=== PATIENT | female | born 1935 | race Caucasian/White ===

== ENCOUNTER → 2023-06-02 10:00 | Outpatient (REF) | payer MEDICARE, BC, SELFPAY ==
[2023-06-02 11:40] LABS: TSH 3.19 uIU/ml (0.47-4.68)
[2023-06-02 12:51] LABS: Free T4 1.44 ng/dl (0.78-2.19)
== END ==
LOC: REG 10:00
PROVIDERS: ATTENDING PHYSICIAN Internal Medicine Endocrinology, Diabetes & Metabolism; FAMILY PHYSICIAN Family Medicine
DX: E04.2 Nontoxic multinodular goiter (principal); E03.9 Hypothyroidism, unspecified
CPT/HCPCS: 36415; 84439; 84443

== ENCOUNTER 2023-07-04 03:35 | Emergency (ER) | payer MEDICARE, BC, SELFPAY ==
[2023-07-04 03:37] VITALS: BP 154/89; BMI 23.4
[2023-07-04 03:41] VITALS: BP 154/89
[2023-07-04 03:51] LABS: % Eosinophils 5.6 % (0-6); % Immature Granulocytes 0.2 % (0-0.5); % Lymphocytes 35.9 % (20.5-51.1); % Monocytes 10.4 % (1.7-9.3); % Neutrophils 46.9 % (42.2-75.2); Absolute Basophils 0.1 10^3/uL (0-0.2); Absolute Eosinophils 0.3 10^3/uL (0-0.7); Absolute Lymphocytes 1.8 10^3/uL (1.2-3.4); Absolute Monocytes 0.5 10^3/uL (0.1-0.6); Absolute Neutrophils 2.3 10^3/uL (1.4-6.5); Hematocrit 40.4 % (37.0-47.0); Mean Corp Hgb Conc. 34.7 g/dL (33.0-37.0); Mean Corpuscular Hgb 32.6 pg (27.0-31.0); Mean Corpuscular Volume 94.2 fL (81.0-99.0); Nucleated Red Blood Cells % 0 %; Platelet Count 198 10^3/uL (130-400); Red Blood Cell Count 4.29 10^6/uL (4.20-5.40); Red Cell Dist. Width 13.8 % (11.5-14.5)
--- NOTE | 2023-07-04 03:58 | ED.GENMED ---
History of Present Illness
<SRUTHI Weller - Last Filed: 07/04/23 04:16>
General
Chief Complaint: Heart Rate Problem
Source: patient
Exam Limitations: none
Time Seen by Provider: 07/04/23 03:44
Nursing documentation reviewed up to this point in time: agreed with
Travel History
Have you had any contact with someone who has COVID-19?: No
Do you have any symptoms of coronavirus? Fever > 100 degrees, chills, cough, shortness of breath, sore throat, loss of taste or smell, muscle aches, or headache?: No
History of Present Illness
History of Present Illness:
patient is a 88 y/o female with PMH of HTN, lung tumor and Afib presenting with palpitations. Patient states she has had palpitations for the last 2 weeks after starting on doxazosin for her HTN. patient states she went to poultry inseminator and surgeon
within the last week. Patient admits that she wanted to stop doxazosin because of the palpitations it was causing but states her doctors told her to stay on it because she needs her BP to come down in order to have the tumor in her chest removed.
Patient denies visual changes, MUÑOZ, SOB, dizziness.
Past History
<SRUTHI Weller - Last Filed: 07/04/23 04:16>
Past History
ED Past Medical History: Arrthythmia (Palpitations, questionable history of atrial fibrillation), HTN, Psychiatric (Anxiety) and Other (migraines)
ED Past Surgical History: None
Social History
Tobacco: Non-smoker
Alcohol: Occasional
Personal:
Living: with family
Family History
Family History: Unable to obtain
Review of Systems
<SRUTHI Weller - Last Filed: 07/04/23 04:16>
Review of Systems
All Other Systems: Not applicable
Constitutional: Reports no symptoms
EENT: Reports no symptoms
Respiratory: Reports no symptoms
Cardiac: Reports palpitations
ABD/GI: Reports no symptoms
: Reports no symptoms
Musculoskeletal: Reports no symptoms
Skin: Reports no symptoms
Neurological: Reports no symptoms
Endocrine: Reports no symptoms
Hematologic/Lymphatic: Reports no symptoms
Psychiatric: Reports no symptoms
Phy Exam
<SRUTHI Weller - Last Filed: 07/04/23 04:16>
General Physical Exam
General Presentation: well appearing and no apparent distress
General Skin: warm and dry
General Habitus: normal
General Mental: alert
General Hydration: appears well hydrated
ENT Exam
ENT Exam: EOMI, pharynx normal, neck supple and normocephalic
Eye Exam
Eye Exam: PERRL, cornea clear and conjunctiva normal
Cardiovascular Exam
Cardiovascular Exam: irregularly irregular
Pulmonary Exam
Pulmonary Exam: lungs clear, no respiratory distress, no rales, no crackles, no rhonchi, no stridor, no wheezing and no cough
Gastrointestinal Exam
Gastrointestinal Exam: normal bowel sounds, non tender, soft, no organomegaly, no pulsatile mass and non distended
Neurological Exam
Neurological Exam: alert, oriented x3, no motor deficits and speech normal
Musculoskeletal Exam
Musculoskeletal Exam: full ROM and no edema
Skin Exam
Skin Exam: normal color, warm/dry, no rash and no petechia
Psychiatric Exam
Psychiatric Exam: normal mood/affect
Course
<SRUTHI Weller - Last Filed: 07/04/23 04:16>
Orders/Labs/Results
Orders:
Orders
07/04/23 03:36
Electrocardiogram (*1) Urgent
Reason for Study: Chest Pain
Cardiac Monitoring- Treatment ONCE
EKG- Treatment ONCE
IV Insert/Care/Rem.- Treatment PRN
O2 Therapy [RESP] Urgent
Titrate/Wean O2 to maintain O2 sat greater than (%): 90
Special Instructions: Maintain sats >/=90%
Pulse Ox/spot Check [RESP] Urgent
Quantity: 1
Special Instructions: ON ROOM AIR
07/04/23 03:44
Complete Blood Count/With Diff Urgent
Comprehensive Metabolic Panel Urgent
Troponin I Urgent
07/04/23 04:08
Diltiazem 125 mg/125 ml Nss [Cardizem] 125 mg in 125 ml IV NOW
Initial dose in mg/hr, then titrate:: 10
Titrate to keep:: Heart rate 80-100 bpm
Titrate by mg/hr:: 5 mg/hr
Frequency of titrations (minutes):: 15
Maximum dose in mg/hr:: 15
07/04/23 04:18
EKG [Electrocardiogram (*1)] Urgent
Reason for Study: Abnormal EKG
Other Reason for Exam: converted back to NSR
EKG- Treatment ONCE
Abnormal Lab Results
07/04/23
03:44
MCH 32.6 H pg
(27.0-31.0)
Monocytes % 10.4 H %
(1.7-9.3)
BUN 19 H mg/dl
(7-17)
Glucose 122 H mg/dl
(70-99)
07/04/23 03:44
07/04/23 03:44
Vital Signs
Initial and Last Documented VS:
Initial Vital Signs
Temp Pulse Resp BP
97.7 F 101 18 154/89
07/04/23 03:37 07/04/23 03:37 07/04/23 03:37 07/04/23 03:37
Last Documented Vital Signs
Temp Pulse Resp BP Pulse Ox
97.7 F 94 23 142/70 94
07/04/23 03:37 07/04/23 05:46 03/24/24 05:46 07/04/23 05:00 07/04/23 05:46
<Maryann Pratt DO - Last Filed: 07/04/23 05:56>
Orders/Labs/Results
Orders:
Orders
07/04/23 03:36
Electrocardiogram (*1) Urgent
Reason for Study: Chest Pain
Cardiac Monitoring- Treatment ONCE
EKG- Treatment ONCE
IV Insert/Care/Rem.- Treatment PRN
O2 Therapy [RESP] Urgent
Titrate/Wean O2 to maintain O2 sat greater than (%): 90
Special Instructions: Maintain sats >/=90%
Pulse Ox/spot Check [RESP] Urgent
Quantity: 1
Special Instructions: ON ROOM AIR
07/04/23 03:44
Complete Blood Count/With Diff Urgent
Comprehensive Metabolic Panel Urgent
Troponin I Urgent
07/04/23 04:08
Diltiazem 125 mg/125 ml Nss [Cardizem] 125 mg in 125 ml IV NOW
Initial dose in mg/hr, then titrate:: 10
Titrate to keep:: Heart rate 80-100 bpm
Titrate by mg/hr:: 5 mg/hr
Frequency of titrations (minutes):: 15
Maximum dose in mg/hr:: 15
07/04/23 04:18
EKG [Electrocardiogram (*1)] Urgent
Reason for Study: Abnormal EKG
Other Reason for Exam: converted back to NSR
EKG- Treatment ONCE
Abnormal Lab Results
07/04/23
03:44
MCH 32.6 H pg
(27.0-31.0)
Monocytes % 10.4 H %
(1.7-9.3)
BUN 19 H mg/dl
(7-17)
Glucose 122 H mg/dl
(70-99)
07/04/23 03:44
07/04/23 03:44
Vital Signs
Initial and Last Documented VS:
Initial Vital Signs
Temp Pulse Resp BP
97.7 F 101 18 154/89
07/04/23 03:37 07/04/23 03:37 07/04/23 03:37 07/04/23 03:37
Last Documented Vital Signs
Temp Pulse Resp BP Pulse Ox
97.7 F 94 23 142/70 94
07/04/23 03:37 07/04/23 05:46 07/04/23 05:46 07/04/23 05:00 07/04/23 05:46
<SRUTHI Weller - Last Filed: 07/04/23 04:16>
MDM/Problems Addressed
Differential Diagnosis Includes:
afib
HTN
MDM/Problems Addressed:
palpitations
<SRUTHI Weller - Last Filed: 07/04/23 04:16>
*Critical Care Note
Total Time (30-74mins, 75-104mins- exclusive of procedures): Not Applicable
<Maryann Pratt DO - Last Filed: 07/04/23 05:56>
*Pulse Oximetry
Patient hypoxic: no
*EKG
Interpreted by ED Provider?: Yes
Interpretation: abnormal
Comparison EKG: changes noted (A-fib with rapid ventricular response is new compared to previous EKG April 2023 showing normal sinus rhythm)
Rate: tachycardiac
Rhythm: a-fib
[place]: normal axis
Interval: normal QT interval
QRS Pattern: normal QRS
Ischemia: no ischemia
*Aging Room Hand Interpretation
Rate: tachycardiac
Interpretation: abnormal
Rhythm: a-fib
ED Attending Note
<SRUTHI Weller - Last Filed: 07/04/23 04:16>
-
Portions of this chart may have been created with voice recognition software.� Occasional wrong word or��sound alike� substitutions may have occurred due to the inherent limitations of voice recognition software.
<Maryann Pratt DO - Last Filed: 07/04/23 05:56>
ED Attending Note
Patient seen and examined by attending physician: Yes
I performed the substantive portion of visit, reviewed & personally made and approve the management plan that is documented in note by myself or GOKUL.: Yes
I performed a history and physical exam of patient and discussed management with resident, I reviewed resident's note and agree with documented findings and plan of care.: Yes
ED Attending Note:
This is an 88-year-old woman with history of paroxysmal A-fib status post A-fib ablation March 26, 2023. Had been started on Tikosyn January 2023 but this was discontinued after PVI in March. She is chronically maintained on Eliquis.
She has had longstanding history of somewhat recalcitrant hypertension and has been following with Dr. 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
The plan is for right lung tumor removal July 27 but blood pressure must be better controlled prior to surgery thus senior mechanical engineer started doxazosin 1 mg twice daily 2 weeks ago. After starting this patient has noted intermittent palpitations that
were worse tonight with difficulty falling asleep tonight thus she called 911 and upon EMS arrival patient found to be in A-fib with rapid ventricular response of 150 and found to be quite hypertensive blood pressure initially 200/120. She denies
chest pain or shortness of breath, no dizziness or lightheadedness. She was given IV Cardizem 15 mg prehospital with improvement in ventricular response to 106, no further palpitations and blood pressure improved.
Shortly after arrival to the ED patient has spontaneously converted to normal sinus rhythm.
She states she had a routine visit with her poultry inseminator, Dr. Carl last week and was found to be in normal sinus rhythm but admits that she had no palpitations at that time.
Other than these intermittent palpitations over the past 2 weeks she has been feeling well.
Currently feels well without complaints.
GENERAL: 88-year-old woman appears somewhat younger than stated age, awake and alert,
EYE: anicteric
NECK: Supple, nontender, no meningismus, no significant adenopathy.
ENT: oral mucosa is moist. No rhinorrhea
CARDIAC: Regular rate and rhythm. no murmur.
LUNGS: Clear breath sounds bilaterally, no acute respiratory distress, no wheezes/rales/rhonchi
ABDOMEN: Soft, nondistended, without focal tenderness, normoactive BS.
NEUROLOGICAL: Alert and oriented x3, no focal neuro deficits.
SKIN: Warm and dry, normal color, skin intact. No rash.
MUSCULOSKELETAL: No C/C/E. peripheral pulses are full and equal b/l. No palpable tenderness.
PSYCH: Normal and appropriate interaction.
Patient with history of PAF presents with PAF with rapid ventricular response accompanied with significant hypertension.
Improved after IV Cardizem prehospital and has since converted to normal sinus rhythm with marked improvement in blood pressure to now 142/84.
She is asymptomatic, comfortable.
Chronically maintained on Eliquis.
Labs are pending.
07/04/2023 0548 AM
Patient remains in normal sinus rhythm. Remains asymptomatic.
Labs are unremarkable.
Cardiology has been notified via [place] text. Plan is for discharge to home with prompt follow-up with cardiology.
Recommend prompt follow-up with nephrology as well.
Discharge Plan
Departure
Patient Disposition: Home (Routine Discharge)
Date of Disposition: 07/04/23
Time of Disposition: 05:46
Patient with high blood pressure during this ER visit?: No
Condition: Good
Discharge Problem:
Paroxysmal atrial fibrillation with rapid ventricular response, Paroxysmal atrial fibrillation
Instructions: Atrial Fibrillation (DC)
Prescriptions:
No Action
levothyroxine 25 MCG tablet
25 mcg PO DAILY AT 0700
ezetimibe [Zetia] 10 MG tablet
10 mg PO DAILY
cholecalciferol (vitamin D3) [Vitamin D3] 2,000 UNIT capsule
2,000 unit PO DAILY
Eliquis 5 MG tablet
5 mg PO BID
clonidine HCl 0.1 mg Tablet
0.1 mg PO BID
multivitamin Tablet
1 tab PO DAILY
carvedilol 6.25 mg Tablet
6.25 mg PO BID
doxazosin 1 mg Tablet
1 mg PO BID
lisinopril 20 mg Tablet
20 mg PO DAILY
Referrals:
Georges Carl MD [Active] - Call in 1-3 days for appt
Mark Coronel DO [Family Provider] -
Scout Russ MD [Active] - Call in 1-3 days for appt
Interventions
Interventions:
*Risk Screen - Suicide Last Done: 07/04/23 03:37
*General Assessment Last Done: 07/04/23 03:37
*Neglect/Abuse Screening Last Done: 07/04/23 03:37
ED- Fall Risk Assessment Last Done: 07/04/23 04:01
*ED COVID-19 Vaccine History Last Done: 07/04/23 04:01
ED- Cardiac Assessment Last Done: 07/04/23 04:01
ED- Pulmonary Assessment Last Done: 07/04/23 04:01
[2023-07-04 04:00] VITALS: BP 142/84
[2023-07-04 04:15] LABS: ALT (SGPT) 16 U/L (0-35); AST (SGOT) 23 U/L (14-36); Albumin 4.1 g/dl (3.5-5.0); Alkaline Phosphatase 105 U/L (38-126); Blood Urea Nitrogen 19 mg/dl (7-17); Calcium 9.3 mg/dl (8.4-10.2); Carbon Dioxide 26 mmol/L (22-30); Chloride 102 mmol/L (98-107); Estimated Creatinine Clearance 68 ml/min; Glucose 122 mg/dl (70-99); Potassium 4.1 mmol/L (3.5-5.1); Sodium 136 mmol/L (135-145); Total Bilirubin 0.5 mg/dl (0.2-1.3); Total Protein 6.9 g/dl (6.3-8.2); eGFR > 60.00
[2023-07-04 04:34] LABS: Troponin I < 0.012 ng/ml
[2023-07-04 05:00] VITALS: BP 142/70
[2023-07-04 06:00] VITALS: BP 151/69
== END 2023-07-04 06:45 | disposition home or self-care (01) ==
LOC: EMR 03:35
PROVIDERS: EMERGENCY PHYSICIAN Emergency Medicine; FAMILY PHYSICIAN Family Medicine
DX: I48.0 Paroxysmal atrial fibrillation (principal); I10 Essential (primary) hypertension; F41.9 Anxiety disorder, unspecified; G43.909 Migraine, unspecified, not intractable, without status migrainosus; I25.10 Atherosclerotic heart disease of native coronary artery without angina pectoris; D49.1 Neoplasm of unspecified behavior of respiratory system; E78.5 Hyperlipidemia, unspecified; K57.90 Diverticulosis of intestine, part unspecified, without perforation or abscess without bleeding; Z79.01 Long term (current) use of anticoagulants
CPT/HCPCS: 99285; 94760; 80053; 84484; 85025; 93005

== ENCOUNTER 2023-07-28 04:57 | Inpatient (IN) | payer MEDICARE, BC, SELFPAY ==
[2023-07-15 08:25] VITALS: BMI 23.7
[2023-07-15 08:59] LABS: Urine Albumin Negative (Neg - Trace); Urine Bilirubin Negative (Negative); Urine Character Clear (Clear); Urine Color Yellow; Urine Glucose Negative (Negative); Urine Ketone Negative (Negative); Urine Leukocyte Negative (Negative); Urine Nitrite Negative (Negative); Urine Occult Blood Negative (Negative); Urine Urobilinogen Negative (Neg - 1+)
[2023-07-15 09:02] LABS: % Basophils 1.2 % (0-2); % Eosinophils 4.7 % (0-6); % Immature Granulocytes 0.2 % (0-0.5); % Lymphocytes 24.7 % (20.5-51.1); % Monocytes 9.8 % (1.7-9.3); % Neutrophils 59.4 % (42.2-75.2); Absolute Basophils 0.1 10^3/uL (0-0.2); Absolute Eosinophils 0.2 10^3/uL (0-0.7); Absolute Lymphocytes 1.2 10^3/uL (1.2-3.4); Absolute Monocytes 0.5 10^3/uL (0.1-0.6); Absolute Neutrophils 2.9 10^3/uL (1.4-6.5); Hematocrit 39.7 % (37.0-47.0); Hemoglobin 13.4 g/dL (12.0-16.0); Mean Corp Hgb Conc. 33.8 g/dL (33.0-37.0); Mean Corpuscular Hgb 32.8 pg (27.0-31.0); Mean Corpuscular Volume 97.3 fL (81.0-99.0); Mean Platelet Volume 12.1 fL (7.4-10.4); Nucleated Red Blood Cells % 0 %; Platelet Count 142 10^3/uL (130-400); Red Blood Cell Count 4.08 10^6/uL (4.20-5.40); Red Cell Dist. Width 13.7 % (11.5-14.5); White Blood Cell Count 4.9 10^3/uL (4.8-10.8)
[2023-07-15 09:09] LABS: INR 1.26; PT 15.8 Sec (11.4-14.6)
[2023-07-15 09:10] LABS: APTT 35.5 Sec (23.4-35.0)
[2023-07-15 09:12] LABS: ALT (SGPT) 15 U/L (0-35); AST (SGOT) 24 U/L (14-36); Albumin 4.2 g/dl (3.5-5.0); Alkaline Phosphatase 94 U/L (38-126); Blood Urea Nitrogen 13 mg/dl (7-17); Calcium 9.5 mg/dl (8.4-10.2); Carbon Dioxide 30 mmol/L (22-30); Chloride 98 mmol/L (98-107); Direct Bilirubin 0.2 mg/dl (0.0-0.4); Estimated Creatinine Clearance 56 ml/min; Glucose 108 mg/dl (70-99); Potassium 4.3 mmol/L (3.5-5.1); Sodium 135 mmol/L (135-145); Total Bilirubin 0.5 mg/dl (0.2-1.3); Total Protein 6.7 g/dl (6.3-8.2); eGFR > 60.00
--- NOTE | 2023-07-15 10:59 | CM ---
Chart reviewed. Met with the patient and her niece in [facility]. Reviewed preoperative and postoperative instructions and restrictions, along with showering guidelines. Gave patient 2 soaps. Patient is agreeable to a home visit by CT Transitional RN.
Patient is independent of ADLS, lives alone in a 3 STH, 2 JASON, 0 DME. Patient with a supportive niece and nephew who live closeby. Dr Cabrera advised patient to follow up with nephrology for labile BP. Plan is for the patient to return home with
CT Transitional RN. CM to follow
[2023-07-15 11:47] LABS: Glycohemoglobin (HgbA1c) 5.7 % (4.0-5.6)
[2023-07-28] VITALS (37 sets, daily range): BP systolic 97–192; BP diastolic 52–92; BMI 23.7; BMI 22.4
--- NOTE | 2023-07-28 05:30 | PTCARENOTE ---
pt admitted into room 2267. VS and weight obtained. pt confirms 2 showers @ home and NPO since midnight except for 3 pills this morning. admission questions and med rec completed. clip prep and CHG cloth bath done.
--- NOTE | 2023-07-28 06:18 | W.CVOR.SURPR ---
[facility] Surgeon Immed Pre Op
-
I have examined this patient prior to performance of the scheduled procedure.
The patient's condition is unchanged from the time of the dictated/written History and
Physical and the patient is able to undergo the scheduled procedure.
BP well controlled this morning. Plan for RATS RLL +/- LN dissection. Would likely be safer to transect the RLL at the hilum as opposed to
attempting a wedge resection (could cause more manipulation of the tumor and bp instability).
[2023-07-28 08:37] LABS: Urine Albumin Negative (Neg - Trace); Urine Bilirubin Negative (Negative); Urine Character Clear (Clear); Urine Color Yellow; Urine Glucose Negative (Negative); Urine Ketone Negative (Negative); Urine Leukocyte Negative (Negative); Urine Nitrite Negative (Negative); Urine Occult Blood Negative (Negative); Urine Urobilinogen Negative (Neg - 1+)
--- NOTE | 2023-07-28 11:12 | W.PN.CT.SURG ---
CT Surgery Operative Note
-
THORACIC SURGERY OPERATIVE REPORT
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
Postoperative Diagnosis: Same
Procedure(s) Performed:
1. Robotic assisted thoracic surgery [RATS] right lower lobe extended wedge resection
2. Intercostal nerve block with the bupivacaine mixture from intercostal spaces 6, 7, 8, 9 using 5 cc in each space
3. Cryoablation of intercostal spaces 6, 7, 8, 9 with 2 minutes of cryotherapy in each space for analgesia
4. Radical lymph node dissection
5. Bleb resection of the right middle lobe
6. Right lower lobe additional wedge resection of small iatrogenic injury
Date of Surgery: 07/27 08/03
Comorbidities:
1. Significant uncontrolled hypertension
2. Polymyositis
3. Pseudogout
4. Atrial flutter and fibrillation, chronic on anticoagulation
5. History of septic arthritis
6. Pulmonary nodule
Attending Surgeon: Miguel German MD, MS
Assistants: Edelmira Hdez PA-C (present and necessary to commercial real estate assistant, exchanging robotic instruments, retraction, suction, exposure, suture management, and wound closure under my direction)
Anesthesiology: Nick Cabrera MD and Aundrea Butcher CRNA
Scrub and Circulating RNs: Ricki Mcfarlane RN, Phoebe Montiel RN
Anesthesia: Dual Lumen GETA
EBL: 20 cc
Products: None
Indication(s) for Procedures: This is a very functional 88-year-old female who is having uncontrolled hypertension, headaches, and tachycardia/atrial arrhythmias. She underwent CT imaging study which found a isolated nodule in the right lower lobe.
PET/CT imaging with dotatate scan revealed significant uptake and activity in that nodule consistent with a neuroendocrine tumor. After alpha blockade and beta-blockade, she was referred to me for further surgical resection and management.
Findings: There are no obvious other intrathoracic lesions. There is a very discrete nodule closer towards the hilum at the base of the right lower lobe close the pericardium. I mobilized the right lower lobe circumferentially and also obtain
multiple lymph nodes at various stations. I felt that it was feasible to perform a wedge resection with negative margins. This was sent off for frozen section which was found to be negative but the margin was close. Additional extended wedge
resection was performed the staple line to approximate 1.5 additional centimeters of normal-appearing parenchyma. A small rent was created at the right lower lobe towards the medial margin from retraction. This was wedged and discarded. There was
a bleb in the medial margin the right middle lobe which was resected proactively. There is no air leak at the conclusion of the case, all 3 lobes inflated easily. Of note, she initially required night pride for hypertension however after right
resection she was on Levophed for hypotension. She received total of 2 L of crystalloid resuscitation and by the end of the case she was off all vasoactive drips.
Specimen(s):
Station 9, x 1 nodes
Station 8, x 1 nodes
Station 10, x 2 nodes
Station 11, x 1 nodes
Station 7, x 4 nodes
Right lower lobe wedge with extended margin
Right middle lobe wedge of blood
Description of Procedure: The patient was taken to the operating room. Induction via general anesthesia with endotracheal intubation was performed and central venous access and arterial monitoring were inserted. Their identity and procedure to be
performed were verified and they were positioned with the right side up on the operating table. The patient was then prepped and draped in a sterile fashion. A preoperative time-out was performed with all members of the team present. A Veress
needle was used to insufflate the chest after isolating the lung. An 8 mm port was placed in the midaxillary line at approximately the eighth intercostal space and confirmed to be intrathoracic without significant pulmonary injury. The chest was
surveyed for any evidence of metastatic disease. Patient tolerate insufflation without complication. 2 additional 12 mm trocars were placed on either side under camera guidance and a third 8 mm trocar was placed along the back. A 12 mm project administrative assistant
port was placed in the 11th intercostal space above the insertion of the diaphragm. An intercostal nerve block was performed at intercostal spaces 6 through 9. Cryotherapy was performed using 2 minutes of cryoablation at interspaces 6-9 for
analgesia.
The thoracic cavity was inspected for evidence of metastatic disease. None was observed. We started with mobilization of the inferior pulmonary ligament. We worked our way clockwise dissecting out the hilum and harvest any lymph nodes identified.
I felt I was able to perform a wedge resection with good clean margins without much manipulation of the nodule. Using several green load staplers, a wedge resection was performed and extracted from the chest cavity and a small specimen bag then
sent for frozen section. Frozen section returned with negative margins after cutting off the staple line, however the margins were close at 1 mm. Additional extended wedge resection was performed the staple line with blue indicating the tumor
side, measuring approximate 1.5 abnormal appearing parenchyma. I noticed that there was a small rent at the medial margin the right lower lobe so this was resected with a wedge resection to prevent air leak postoperatively. A bleb was also noticed
at the right middle lobe which was resected to again to mitigate the risk of air leak postoperatively. A chest tube was inserted and placed posterior laterally towards the apex. Pro gel was used to reinforce the staple lines. After confirming
hemostasis, the lung was fully inflated and all ports were removed. Incisions were closed in 3 layers including the fascia, dermal, and epidermis. Additional local anesthesia was injected into all incision sites. The skin wound was cleansed and
sealed with Dermabond glue.
All instrument, sponge, and needle counts were confirmed to be correct x 2 at the end of the operation. The patient was transferred to the cardiac intensive care unit extubated in critical but stable condition.
I, Dr. Miguel German, was present, scrubbed for, and performed all critical elements of this procedure.
Miguel German MD, MS
Cardiothoracic Surgeon
[facility]
This operative dictation was created using the [employer] dictation system. Please excuse any grammatical, typographical, or 'sound alike' errors
[2023-07-28] MEDS: TORADOL 15 MG IV (11:39)
[2023-07-28] MEDS: ZOFRAN 4 MG IV (11:43)
[2023-07-28] MEDS: ANCEF 10 IV ×2 (11:45)
--- NOTE | 2023-07-28 12:03 | PTCARENOTE ---
Received pt from [facility]; Pt AAOx3 and resting comfortably in bed; NSR on monitor and VSS; Right IJ Triple lumen and PIV x 1 patent, Nipride infusing at 1.5 mcg/kg/min see flow sheet for details; lungs diminished; CT x1 to water seal, no air leak and
no crepitus noted; 6L NC 98%; hypoactive bowel sounds; Amaya Catheter removed in OR pt due to void by 1730; palpable pulses throughout; no edema noted; surgical sites C/D/I; see nursing documentation for further details.
[2023-07-28] MEDS: SENOKOT-S PO (12:32)
[2023-07-28] MEDS: THERAGRAN PO (12:32)
[2023-07-28] MEDS: COMPAZINE 10 MG IV (12:59)
--- NOTE | 2023-07-28 13:23 | CON.MD ---
Consultation - Medical
-
Data reviewed, patient evaluated in the CVICU, complete nephrology consultation dictated
Critically ill in CVICU on nitroprusside +/- norepinephrine
Status post robotic assisted right lower lobe extended wedge resection
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
Longstanding primary hypertension with change in pattern 2021
Atrial flutter/fibrillation on anticoagulation
History of cardioversion x 2
History of polymyositis
History of pseudogout
History septic arthritis
Hypothyroidism on replacement
Hypercholesterolemia, statin intolerant
Carotid atherosclerosis
Anxiety
Report of intraoperative need for nitroprusside then norepinephrine
Currently on low rate norepinephrine
A-line in place
Extubated
O2 saturation excellent on nasal cannula
Chest tube present
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
diet 72 hours preop and her diuretic had been discontinued weeks ago
Gradually wean off nitroprusside and norepinephrine
Postoperative course somewhat expected given suspected norepinephrine-secreting paraganglioma
Continue phenoxybenzamine at lower dose 10 mg BID
Would resume some beta-blockade with carvedilol 6.25 mg BID
Attempt to manage without clonidine short-term as I suspect antihypertensive requirements will diminish
Lisinopril 20 mg daily can be resumed
Discontinue terazosin when phenoxybenzamine is available
Await pathology
Reviewed with critical care nursing
Reviewed with cardiothoracic surgery
Total critical care time to complete this encounter 36 minutes
--- NOTE | 2023-07-28 13:43 | PTCARENOTE ---
A-line removed per [facility] order.
[2023-07-28] MEDS: ZESTRIL 20 MG PO (15:02)
--- NOTE | 2023-07-28 15:04 | PTCARENOTE ---
Assessment unchanged; NSR on monitor and VSS; family at bedside.
--- NOTE | 2023-07-28 15:19 | CM ---
Pt. in OR today for planned CT surgery.
Reviewed initial assessment. Patient is independent of ADLS, lives alone in a 3 STH, 2 JASON, 0 DME. Patient with a supportive niece and nephew who live closeby.
Anticipated DC plan is for home w/ CT Transitional Care RN.
CM to follow.
[2023-07-28] MEDS: ANCEF 5 IV (15:32)
[2023-07-28] MEDS: ROXICODONE 5 MG PO (15:34)
[2023-07-28] MEDS: COREG 6.25 MG PO ×2 (15:58→20:52)
[2023-07-28] MEDS: NON-FORMULARY ITEM 10 MG PO (16:07)
--- NOTE | 2023-07-28 17:37 | PTCARENOTE ---
BP 198/98 updated [facility] WET WHEELER; new orders placed Cardene IV started per [facility]ELER order.
[2023-07-28] MEDS: CARDENE 200 IV (17:39)
--- NOTE | 2023-07-28 17:55 | CON.PUL ---
Consultation
Consultation Request
Date/Time Consultation Requested: 07-28-23
Date/Time Consultation Performed: 07-28-23
Requesting Provider: Dr German
Performing Provider: Dr Medrano
Reason for Consultation: s/p RLL wedge resection
Medical History
-
Chief Complaint: postop incisional pain
History of Present Illness:
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
Referred to Dr German by Dr Russ. Prepared for surgical resection with phenoxybenzamine, lisinopril, carvedilol, clonidine.
Seen at [facility] upon referral from Dr German, normal PFTs, no objection to surgical procedure (records reviewed)
RLL wedge surgical resection performed today with no incident
Seen at CVICU in presence of close friend
Mild incisional pain
No h/o smoking
Not on home O2 or BDs
Past Medical History
Past Medical History: HTN and Other (AFib s/p ablation. Diverticulitis. Migraine. MVP. HLD. Anxiety. Insomnia. Thyroid nodule. R knee OA. )
Past Surgical History: Other (D&C)
Social History
Tobacco: Non-smoker
Alcohol: None
Drug: None
Personal:
Living: Alone
Employment: Retired
Family History
Family History: CAD (F) and Other (M: RA)
Allergies / Home Medications
Allergies
Allergy/AdvReac Type Severity Reaction Status Date / Time
amlodipine Allergy Swelling Verified 07/09/23 13:07
atorvastatin calcium Allergy leg cramps Verified 07/09/23 13:07
[From Lipitor] & heart
palpitations/head
pressure
citalopram Allergy whole body Verified 07/09/23 13:07
tingling
dofetilide [From Tikosyn] Allergy Unknown Verified 07/09/23 13:07
doxazosin Allergy elevated BP Verified 07/09/23 13:12
latex Allergy Itching Verified 07/09/23 13:07
pravastatin Allergy leg cramps Verified 07/09/23 13:07
& heart
palp.;
head
pressure
Home Medications
�Medication �Instructions �Recorded �Confirmed �Last Taken �Type
levothyroxine 25 mcg tablet 25 mcg PO DAILY AT 0700 Thyroid 07/13/11 07/28/23 07/27/23 08:00 History
apixaban 5 mg tablet (Eliquis) 5 mg PO BID Blood Clot 04/03/18 07/28/23 07/25/23 18:00 History
Prevention/Tx
cholecalciferol (vitamin D3) 50 2,000 unit PO DAILY Supplement 04/03/18 07/28/23 07/27/23 09:00 History
mcg (2,000 unit) capsule (Vitamin
D3)
ezetimibe 10 mg tablet (Zetia) 10 mg PO DAILY High Cholesterol 04/03/18 07/28/23 07/27/23 09:00 History
clonidine HCl 0.1 mg tablet 0.1 mg PO BID 10/18/22 07/28/23 07/28/23 04:30 History
multivitamin 1 tab PO DAILY 03/26/23 07/28/23 07/27/23 09:00 History
carvedilol 6.25 mg tablet 12.5 mg PO BID 07/04/23 07/28/23 07/28/23 04:30 History
lisinopril 20 mg tablet 20 mg PO DAILY 07/04/23 07/28/23 07/27/23 09:00 History
terazosin 1 mg capsule 1 mg PO QPM 07/09/23 07/28/23 07/27/23 18:00 History
phenoxybenzamine 10 mg capsule 10 mg PO BID 07/28/23 07/28/23 07/28/23 04:30 History
Review of Systems
-
History Source: Patient
All other systems: Negative unless noted
Respiratory: Other (incisional pain)
Neuro: Weakness
Vitals / Labs / Diagnostic Testing
Vital Signs
Temp Pulse Resp BP Pulse Ox
98.1 F 76 18 175/76 98
07/28/23 16:02 07/28/23 17:00 07/28/23 16:02 07/28/23 17:00 07/28/23 17:00
Lab Data
07/28/23 10:45
07/28/23 10:45
Laboratory Results
07/28/23
10:45
pH Cancelled
pCO2 Cancelled
pO2 Cancelled
HCO3 Cancelled
O2 Delivery Level Cancelled
Diagnostic Testing:
Physical Exam
-
HEENT: Normocephalic and Moist Mucous Membranes
Cardiovascular: Regular Rhythm, Murmur (n), Peripheral Edema (n), Calf Tenderness (n) and JVD (n)
Respiratory: Clear, Non-Labored Respirations and Other (R chest tube)
GI: Soft, Non Distended and Non Tender
Neurology: Awake, AO x 3 and No Motor Deficits
Skin: Warm
General: Respiratory Distress (n)
Assessment
-
Assessment:
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 Referred to Dr
German by Dr Russ. Prepared for surgical resection with phenoxybenzamine, lisinopril, carvedilol, clonidine. Wedge surgical resection performed today with no incident
Impression:
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
S/p wedge resection 07-27
Conditions ESTHETICIAN:
PAF s/p ablation, on apixaban
HTN
Diverticulitis
Migraine
MVP
Anxiety
Insomnia
Thyroid nodule
R knee OA
Sacroiliac septic arthritis
D&C
Nonsmoker
Plan:
O2 protocol
Not oh home O2 or BDs. LLNS
Asp precs
IS
R chest tube mgmt
Pain mgmt
HTN mgmt
Early mobilization
Follow [facility] on a routine basis
D/w Mrs Munoz
No critical care time charged
--- NOTE | 2023-07-28 20:00 | PTCARENOTE ---
Resumed care of patient from previous RN. walking rounds completed. patient oob in chair at time of assessment. Pt AAOx3.NSR on monitor and VSS. pulses palpable. no edema. CT x1 to water seal, no air leak and no crepitus noted. draining serosang
fluid. 96% on 1L nc. Lungs diminished but clear. + bowel sounds. intermittent nausea reported. voiding on bsc. some stress inc. surgical sites C/D/I. no pain reported at this time. will continue to monitor.
[2023-07-28] MEDS: SENOKOT-S 1 TABLET PO (20:52)
[2023-07-29] VITALS (32 sets, daily range): BP systolic 104–166; BP diastolic 52–93; BMI 23.2
[2023-07-29] MEDS: ANCEF 5 IV ×2 (00:26→07:40)
[2023-07-29 03:50] LABS: Hematocrit 36.4 % (37.0-47.0); Hemoglobin 12.5 g/dL (12.0-16.0); Mean Corp Hgb Conc. 34.3 g/dL (33.0-37.0); Mean Corpuscular Hgb 33.1 pg (27.0-31.0); Mean Corpuscular Volume 96.3 fL (81.0-99.0); Mean Platelet Volume 12.3 fL (7.4-10.4); Platelet Count 134 10^3/uL (130-400); Red Blood Cell Count 3.78 10^6/uL (4.20-5.40); Red Cell Dist. Width 13.8 % (11.5-14.5); White Blood Cell Count 9.5 10^3/uL (4.8-10.8)
[2023-07-29 04:14] LABS: Blood Urea Nitrogen 15 mg/dl (7-17); Calcium 9.2 mg/dl (8.4-10.2); Carbon Dioxide 27 mmol/L (22-30); Chloride 102 mmol/L (98-107); Estimated Creatinine Clearance 68 ml/min; Glucose 122 mg/dl (70-99); Potassium 4.3 mmol/L (3.5-5.1); Sodium 134 mmol/L (135-145); eGFR > 60.00
--- NOTE | 2023-07-29 06:21 | W.PN.CT ---
Today's Communication / Plan
-
-pod #1
-no significant issues overnight, in nsr
-on Cardene 5 for htn. Restarted on Coreg, Lisinopril, Phenoxybenzamine
-R CT on water seal since OR, no air leak with cough or breathing, put out 95/265 serosang fluid in 12/24 hrs
-follow daily CXR
-encourage IS, OOB, ambulate
Assessment / Plan
-
-Nodule in the right lower lobe consistent with a neuroendocrine tumor, significant hypertension- s/p Robotic assisted thoracic surgery [RATS] RLL extended wedge resection; Radical lymph node dissection; Bleb resection of the right middle lobe;
Right lower lobe additional wedge resection of small iatrogenic injury; Cryoablation of intercostal spaces 6, 7, 8, 9 for analgesia on 07/28/[address] German, pod #1
- there are no obvious other intrathoracic lesions
- received total of 2 L of crystalloid resuscitation
- Significant uncontrolled hypertension
- Polymyositis
- Pseudogout
- Paroxysmal Atrial flutter and fibrillation, on Eliquis preop
- History of septic arthritis
- Chronic L leg edema
- Pulmonary nodule
Discussed patient care with: Nursing and Care Team
Subjective
Procedure
- s/p Robotic assisted thoracic surgery [RATS] RLL extended wedge resection; Radical lymph node dissection; Bleb resection of the right middle lobe; Right lower lobe additional wedge resection of small iatrogenic injury; Cryoablation of intercostal
spaces 6, 7, 8, 9 for analgesia on 07/28/[address] German
-
Date of Service: July 28, 2023
Objective Data
-
Lab Results
07/28/23 10:45
07/28/23 10:45
PT 15.8 Sec (11.4-14.6) H 07/15/23 08:35
INR 1.26 07/15/23 08:35
APTT 35.5 Sec (23.4-35.0) H 07/15/23 08:35
Vital Signs
Vital Signs
Temp Pulse Resp BP Pulse Ox
98.3 F 73 18 134/57 96
07/28/23 20:00 07/28/23 20:52 07/28/23 16:02 07/28/23 20:52 07/28/23 20:00
CT Intake/Output/Weight
07/28/23 07/28/23 07/29/23
06:59 18:59 06:59
Intake Total 235.7 / 270.7 35 / 270.7
Output Total 670 / 690 20 / 690
Balance -434.3 / -419.3 15 / -419.3
SaO2: 96
Physical Exam
-
General: Awake and AOx3
Cardiovascular: Regular rate & rhythm, No Murmurs and No Rub
Respiratory: Rales (at bases b/l) and Decreased Breath Sounds
Incision: Clean, Dry and Dressing Intact
Extremities: Other (trace leg edema b/l (has chronic trace L edema). 1+ hand edema b/l. 2+ DPs b/l)
Data Reviewed
-
Lab Results: Results Reviewed
Medications: Active Meds Reviewed
Chest X-Ray: Report Reviewed and Image Reviewed
ECG: Report Reviewed and Image Reviewed
[2023-07-29] MEDS: SYNTHROID 25 MCG PO (06:33)
[2023-07-29] MEDS: TYLENOL 650 MG PO (06:33)
--- NOTE | 2023-07-29 07:11 | W.PN.PUL3 ---
Today's Communication / Plan
-
Follow on CXR results
[facility] follow up
Assessment
-
Assessment:
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 Referred to Dr
German by Dr Russ. Prepared for surgical resection with phenoxybenzamine, lisinopril, carvedilol, clonidine. Wedge surgical resection performed today with no incident
Impression:
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
S/p wedge resection 07-27
Conditions COMMUNICATION MANAGER:
PAF s/p ablation, on apixaban
HTN
Diverticulitis
Migraine
MVP
Anxiety
Insomnia
Thyroid nodule
R knee OA
Sacroiliac septic arthritis
D&C
Nonsmoker
Plan:
O2 protocol
Not oh home O2 or BDs. LLNS
Asp precs
IS
CXRs reviewed, tiny R apical pneumothorax, chest tube in R field, new air collection under R diaphragm
R chest tube removed today
Pain mgmt
HTN mgmt
Early mobilization
Follow [facility] on a routine basis
D/w Mrs Munoz
Subjective Data
-
Date of Service:
Date of Service: July 29, 2023
Chief Complaint: Pulmonary Follow Up
Subjective:
No major events reported overnight
Sitting in chair, stable on room air
Right chest tube removed today
Review of Systems
General: Fever (n), Sweats (n), Chills (n) and Satisfactory Appetite
HEENT: Epistaxis and Dysphagia (n)
Cardiopulmonary: Dyspnea (n), Cough, Chest Pain (incisional), Lower Extremity Pain (n) and Hemoptysis (n)
GI: Abdominal Pain (n), Nausea (n) and Vomiting (n)
Neuro: Weakness (n)
Objective Data
Data Reviewed
Vital Signs / I&O / Oxygen:
Vital Signs
Temp Pulse Resp BP Pulse Ox
98.1 F 76 18 151/71 93
07/29/23 03:54 07/29/23 04:35 07/29/23 03:54 07/29/23 04:00 07/29/23 03:54
Intake and Output
07/28/23 07/29/23 07/30/23
06:59 06:59 06:59
Intake Total 380.7 / 380.7
Output Total 1150 / 1150
Balance -769.3 / -769.3
SaO2 93
Nasal Cannula flow liters per 1
minute
Physical Exam
General: Comfortable
HEENT: Normocephalic and Moist Mucous Membranes
Cardiovascular: Regular Rhythm and Peripheral Edema (n)
Respiratory: Clear, Non-Labored Respirations and Stridor (n)
GI: Soft, Non Distended and Non Tender
Neurology: Awake, AO x 3 and No Motor Deficits
Skin: Warm
Labs/Micro/Reports
Lab Data
07/29/23 03:35
07/29/23 03:35
Laboratory Results
07/28/23
10:45
pH Cancelled
pCO2 Cancelled
pO2 Cancelled
HCO3 Cancelled
O2 Delivery Level Cancelled
[2023-07-29] MEDS: ZETIA 10 MG PO (07:40)
[2023-07-29] MEDS: ZESTRIL 20 MG PO (07:40)
[2023-07-29] MEDS: SENOKOT-S 1 TABLET PO (07:40)
[2023-07-29] MEDS: THERAGRAN 1 TABLET PO (07:41)
[2023-07-29] MEDS: COREG 6.25 MG PO (07:41)
[2023-07-29] MEDS: NON-FORMULARY ITEM 10 MG PO (07:41)
--- NOTE | 2023-07-29 07:44 | PTCARENOTE ---
Received pt from shift engineer RN; pt AAOX3 and resting comfortably in bed; NSR on monitor and VSS; RIJ Triple Lumen central line and PIV x1 patent; Lungs diminished; CT x1 to water seal, no air leak and no crepitus noted; positive bowel sounds; pt
voiding clear yellow urine; palpable pulses throughout; +1 generalized edema noted; surgical sites C/D/I; see nursing documentation for details.
--- NOTE | 2023-07-29 08:00 | PTCARENOTE ---
HR on monitor 150s and BP 155/83; update CV STRETCHER HELPER, Lopressor 5mg IV placed by STRETCHER HELPER; EKG preformed and resulted A-flutter.
[2023-07-29] MEDS: COMPAZINE 10 MG IV (08:06)
[2023-07-29] MEDS: LOPRESSOR 5 MG IV (08:21)
--- NOTE | 2023-07-29 08:46 | PTCARENOTE ---
[facility] at bedside and Right Pleural Chest tube removed at this time; awaiting for portable CRX.
[2023-07-29] MEDS: KLOR-CON 20 MEQ PO (09:00)
[2023-07-29] MEDS: ELIQUIS 5 MG PO (09:00)
[2023-07-29] MEDS: LASIX 40 MG IV (09:00)
--- NOTE | 2023-07-29 10:51 | W.DCSUMMARY ---
Discharge Summary
Discharge Data
Date of Admission: 07/28/23
Date of Discharge: 07/29/23
Total time spent discharging patient (in min): 35
-
Pending Results: No
Hospital Course
Primary care physician:
Dr. Mark Coronel MD
Outpatient icu registered nurse:
Dr. Georges Carl MD
Inpatient consultants:
1. Nephrology-Dr. Scout Russ MD.
2. Pulmonary-Dr. Kennedy Medrano MD.
Procedures:
1. Robotic assisted thoracic surgery, right lower lobe extended wedge resection
2. Bled resection of right middle lobe
3. Right lower lobe additional wedge resection of small iatrogenic injury
4. Cryoablation of intercostals via cryotherapy
Primary Diagnosis:
1. Nodue in the right lower lobe consistent with a neuroendocrine tumor
2. Significant uncontrolled hypertension
Secondary Diagnoses:
1. Polymyositis
2. Pseudogout
3. Atrial flutter and fibrillation
4. Chronic oral anticoagulation with Eliquis secondary to atrial flutter and fibrillation
5. History of septic arthritis
6. History of pulmonary nodule
HPI:
This is a very functional 88-year-old female who is having uncontrolled hypertension, headaches, and tachycardia/atrial arrhythmias. She underwent CT imaging study which found a isolated nodule in the right lower lobe. PET/CT imaging with dotatate
scan revealed significant uptake and activity in that nodule consistent with a neuroendocrine tumor. After alpha blockade and beta-blockade, she was referred to me for further surgical resection and management. Patient was deemed an appropriate
candidate for resection using the robotic assisted thoracic surgery approach. She presented electively to [facility] on the described above for the procedure described above.
Hospital course:
Patient tolerated procedure well. She was extubated in the operating theater and her chest tube was placed to waterseal. She was transported to the cardiovascular ICU where she underwent her postoperative recovery. Postoperatively she required
Nipride for hypertension. She was started on her home antihypertensive medications and Nipride was slowly weaned off. Amaya and A-line were discontinued. The rest the patient's postoperative course was uneventful. On postoperative day #1 no air
leak was visualized. Patient had a preoperative history of atrial fib/flutter and she went into atrial flutter with RVR 150s. She was given 5 mg of IV Lopressor and rates improved to 80s�90s. Discussion was had with cardiology and the patient's
Coreg was increased to 25 mg twice daily. Patient's chest tube was removed at the bedside. Post pull chest x-ray revealed free air noted under the diaphragm. This was discussed with attending physician and was likely due to the patient's robotic
procedure requiring CO2 insufflation. Repeat chest x-ray at 2:00 PM showed no significant changes. Patient's abdominal exam was asymptomatic with no complaints. Case was discussed with attending physician and she was medically cleared to be
discharged to home.
Patient should have a repeat outpatient PA and lateral chest x-ray on Wednesday08/03/23. Patient was instructed to please call, return to office, or present to the emergency room with any of the following symptoms fevers, chills, tachycardia, or
abdominal tenderness.
Home medication changes:
Please pay attention to the following medication changes:
Take Acetaminophen 650 mg Q4HPRN for mild pain/fever
Take Oxycodone 5 mg Q6HPRN for moderate-severe pain control
Take Carvedilol 25 mg BID
Please stop taking the following medications:
Carvedilol 12.5 mg BID and replace with Carvedilol 25 mg BID
Stop taking Clonidine 0.1 mg BID per request of Nephrology
Stop taking Terazosin 1 mg QPM per request of Nephrology
Discharge Plan
-
Patient Disposition: Home (Routine Discharge)
Discharge Diagnosis/Procedures: RLL wedge resection and lymph node dissection
Diet: No restrictions
Activity: No strenuous activity
Driving Restrictions: Not until seen by your Dr
Bathing Restrictions: OK to Shower
Others Tests: PA/Lateral Chest X ray to be performed on Wednesday08/03/23
Specialty Instructions: Weigh Daily- Call MD for wt gain/loss 3 lbs overnight/5 lbs in 1 week
Referrals:
CT Transitional Care Nurse [Outside] (The Cardiothoracic Transitional Care Nurse will call you to set up a visit in 1-2 days.)
Mark Coronel DO [Family Provider] -
Miguel German MD [Active] - 08/18/23 1:45 pm
Additional Discharge Medication Instructions: Please pay attention to the following medication changes:
Take Acetaminophen 650 mg Q4HPRN for mild pain/fever
Take Oxycodone 5 mg Q6HPRN for moderate-severe pain control
Take Carvedilol 25 mg BID
Please stop taking the following medications:
Carvedilol 12.5 mg BID and replace with Carvedilol 25 mg BID
Stop taking Clonidine 0.1 mg BID per request of Nephrology
Stop taking Terazosin 1 mg QPM per request of Nephrology
Please call, return to office, or present to the emergency room with any of the following symptoms fevers, chills, tachycardia, or abdominal tenderness
Prescriptions:
New
acetaminophen 325 mg Tablet
650 mg PO Q4HPRN PRN (Reason: temp >102 F and/or mild pain) Qty: 0 0RF
oxycodone 5 mg Tablet
5 mg PO Q6HPRN PRN (Reason: moderate-severe pain) Qty: 28 0RF
carvedilol [Coreg] 25 mg tablet
25 mg PO BID Qty: 60 1RF
Rx Instructions:
Next dose will be this evening around 10:00 pm if you are awake. If sleeping resume in AM
Continued
levothyroxine 25 MCG tablet
25 mcg PO DAILY AT 0700
ezetimibe [Zetia] 10 MG tablet
10 mg PO DAILY
cholecalciferol (vitamin D3) [Vitamin D3] 2,000 UNIT capsule
2,000 unit PO DAILY
multivitamin Tablet
1 tab PO DAILY
lisinopril 20 mg Tablet
20 mg PO DAILY
phenoxybenzamine 10 mg Capsule
10 mg PO BID Qty: 0 0RF
Eliquis 5 MG tablet
5 mg PO BID Qty: 0 0RF
Rx Instructions:
Next dose will be this evening 07/29/23 8:00 pm or when you typically take it in PM
Discontinued
clonidine HCl 0.1 mg Tablet
0.1 mg PO BID
carvedilol 6.25 mg Tablet
12.5 mg PO BID
terazosin 1 mg Capsule
1 mg PO QPM
Discharge Orders:
Discharge Patient (As Directed); Ordered 07/29/23
Ordered By: Taylor Ernst
Care Plan Goals
Care Plan Goals:
Problem: Readiness for enhanced knowledge related to diagnosis and treatment plan
Goal: Understand your diagnosis and treatment plan needs, including medications if applicable.
Instructions: Know your diagnosis, underlying causes and treatment plan options, including medications if applicable. Consult with your health care team to learn about your diagnosis and treatment plan, including medications if applicable.
Discharge Date and Time
Print Language: SPANISH
--- NOTE | 2023-07-29 11:19 | W.PN.NEPH.PH ---
Today's Communication / Plan
-
- blood pressures well controlled
Assessment/Plan
-
Status post robotic assisted right lower lobe extended wedge resection
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
Longstanding primary hypertension with change in pattern 2021
Atrial flutter/fibrillation on anticoagulation
History of cardioversion x 2
History of polymyositis
History of pseudogout
History septic arthritis
Hypothyroidism on replacement
Hypercholesterolemia, statin intolerant
Carotid atherosclerosis
Anxiety
Report of intraoperative need for nitroprusside then norepinephrine
Currently on low rate norepinephrine
A-line in place
Extubated
O2 saturation excellent on RA
Chest tube d/c
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
diet 72 hours preop and her diuretic had been discontinued weeks ago
Patient is now off of levo and nitroprusside
Postoperative course somewhat expected given suspected norepinephrine-secreting paraganglioma
Continue phenoxybenzamine at lower dose 10 mg BID
Okay with betablockade with coreg 12.5mg BID
Lisinopril 20 mg daily can be resumed
Avoid clonidine for now
Off cardene gtt
Discontinue terazosin when phenoxybenzamine is available
Await pathology
Likely plan for d/c later today or tomorrow.
Reviewed with critical care nursing
-
-
Date of Service: July 29, 2023
CC / HPI / ROS
-
Chief Complaint:
Blood pressure management following
catecholamine secreting paraganglioma resection.
History of Present Illness:
intraoperative hypertension then hypotension, now off all gtts
blood pressure well managed on penoxybenzamine, coreg and lisinopril today
Review of Systems:
feeling well
recieved lasix, good UOP
Labs
-
Labs:
WBC 9.5 10^3/uL (4.8-10.8) 07/29/23 03:35
RBC 3.78 10^6/uL (4.20-5.40) L 07/29/23 03:35
Hgb 12.5 g/dL (12.0-16.0) 07/29/23 03:35
Hct 36.4 % (37.0-47.0) L 07/29/23 03:35
Plt Count 134 10^3/uL (130-400) 07/29/23 03:35
Sodium 134 mmol/L (135-145) L 07/29/23 03:35
Potassium 4.3 mmol/L (3.5-5.1) 07/29/23 03:35
Chloride 102 mmol/L (98-107) 07/29/23 03:35
Carbon Dioxide 27 mmol/L (22-30) 07/29/23 03:35
BUN 15 mg/dl (7-17) 07/29/23 03:35
Creatinine 0.5 mg/dL (0.6-1.0) L 07/29/23 03:35
eGFR > 60.00 07/29/23 03:35
Glucose 122 mg/dl (70-99) H 07/29/23 03:35
Calcium 9.2 mg/dl (8.4-10.2) 07/29/23 03:35
Albumin 4.2 g/dl (3.5-5.0) 07/15/23 08:35
Physical Exam
-
Vital Signs:
Vital Signs
Temp Pulse Resp BP Pulse Ox
98.0 F 109 18 111/63 95
07/29/23 08:00 07/29/23 10:40 07/29/23 08:00 07/29/23 10:30 07/29/23 10:33
Cardiovascular:: Regular rate and rhythm
Respiratory:: Bilateral: Coarse
Lung Excursion:: Normal
Abdomen:: Nontender and Soft
Bowel Sounds:: Normal
Extremity Edema:: None: Bilateral:
Amaya Catheter: No
--- NOTE | 2023-07-29 12:04 | W.PN.ANS.POP ---
Anesthesia Post Operative
- Anesthesia Post Op Note
Vital Signs Stable-See Nursing Note: Yes
Airway Patent: Yes
Adequate Pain Control: Yes
Change in Mental Status: No
Current Postoperative Nausea & Vomiting: No
Anesthesia Complications: No
General Anesthetic Recall: No
Unplanned Admission: No
Post Op Hydration Adequate: Yes
--- NOTE | 2023-07-29 13:14 | PTCARENOTE ---
assumed care of pt from previous shift RN, initially uncontrolled AF on tele, converted to sinus rhythm. VSS, + peripheral pulses. Coughing and deep breathing encouraged. Surgical sites intact. Plan of care reviewed w the pt and questions
encouraged.
--- NOTE | 2023-07-29 14:30 | CM ---
CM following for DC planning needs.
Met w/ patient at bedside. Pt. reports that she is feeling well.
Reviewed DC plan for home w/ CT Transitional Care RN.
CM to cont. to follow.
[2023-07-29] MEDS: COREG 25 MG PO (14:40)
--- NOTE | 2023-07-29 14:44 | PTCARENOTE ---
TLC removed by [facility].
--- NOTE | 2023-07-29 16:48 | W.PA-PDMP ---
[place]-PDMP
-
Checked the [place]- Prescription Drug Monitoring Program website, no red flags identified; safe to proceed with prescription.
--- NOTE | 2023-07-29 17:35 | PTCARENOTE ---
IV line and tele monitor removed. Pt is refusing to shower until she gets home. Discharge instructions, medication list and follow up appointments reviewed w the pt and questions encouraged.
== END 2023-07-29 17:45 | disposition home or self-care (01) | DRG 164 ==
LOC: CVICU 04:57
PROVIDERS: Nurse Practitioner; ADMITTING PHYSICIAN Thoracic Surgery (Cardiothoracic Vascular Surgery); FAMILY PHYSICIAN Family Medicine; OTHER PHYSICIAN Internal Medicine Pulmonary Disease; OTHER PHYSICIAN Specialist
PROC: 8E0W4CZ Robotic Assisted Procedure of Trunk Region, Percutaneous Endoscopic Approach (ICD-10-PCS; 2023-07-28)
PROC: 07B74ZZ Excision of Thorax Lymphatic, Percutaneous Endoscopic Approach (ICD-10-PCS; 2023-07-28)
PROC: 015 Peripheral Nervous System, Destruction (ICD-10-PCS; 2023-07-28)
PROC: 0BBD4ZZ Excision of Right Middle Lung Lobe, Percutaneous Endoscopic Approach (ICD-10-PCS; 2023-07-28)
PROC: 0BT Respiratory System, Resection (ICD-10-PCS; 2023-07-28)
DX: C7A.090 Malignant carcinoid tumor of the bronchus and lung (principal); I48.92 Unspecified atrial flutter; M33.20 Polymyositis, organ involvement unspecified; K57.92 Diverticulitis of intestine, part unspecified, without perforation or abscess without bleeding; M00.9 Pyogenic arthritis, unspecified; D3A.8 Other benign neuroendocrine tumors; I10 Essential (primary) hypertension; M11.20 Other chondrocalcinosis, unspecified site; I48.0 Paroxysmal atrial fibrillation; F41.9 Anxiety disorder, unspecified; E78.00 Pure hypercholesterolemia, unspecified; Z79.01 Long term (current) use of anticoagulants; E04.1 Nontoxic single thyroid nodule; D44.7 Neoplasm of uncertain behavior of aortic body and other paraganglia; D35.00 Benign neoplasm of unspecified adrenal gland
CPT/HCPCS: 88305; 88307; 88332; 32505; 36415; 64999; 71045; 80048; 80053; 81003; 82248; 83036; 85025; 85027; 85610; 85730; 86850; 86900; 86901; 86920; 87070; 88331; 88341; 88342; 93005; 93880; C2615; C2618; J2760

== ENCOUNTER → 2023-08-03 12:01 | Outpatient (REF) | payer MEDICARE, BC, SELFPAY | LOC: RAD 12:01 | PROVIDERS: ATTENDING PHYSICIAN Thoracic Surgery (Cardiothoracic Vascular Surgery); FAMILY PHYSICIAN Family Medicine | DX: Z98.890 Other specified postprocedural states (principal) | CPT/HCPCS: 71046 ==

== ENCOUNTER 2023-09-13 12:15 | Emergency (ER) | payer MEDICARE, BC, SELFPAY ==
[2023-09-13 12:34] VITALS: BP 167/96
[2023-09-13 13:11] LABS: % Basophils 0.9 % (0-2); % Eosinophils 1.9 % (0-6); % Immature Granulocytes 0.3 % (0-0.5); % Lymphocytes 24.5 % (20.5-51.1); % Monocytes 10.2 % (1.7-9.3); % Neutrophils 62.2 % (42.2-75.2); Absolute Basophils 0.1 10^3/uL (0-0.2); Absolute Eosinophils 0.1 10^3/uL (0-0.7); Absolute Lymphocytes 1.8 10^3/uL (1.2-3.4); Absolute Monocytes 0.8 10^3/uL (0.1-0.6); Absolute Neutrophils 4.6 10^3/uL (1.4-6.5); Hematocrit 43.6 % (37.0-47.0); Hemoglobin 14.8 g/dL (12.0-16.0); Mean Corp Hgb Conc. 33.9 g/dL (33.0-37.0); Mean Corpuscular Hgb 33.3 pg (27.0-31.0); Mean Corpuscular Volume 98.2 fL (81.0-99.0); Mean Platelet Volume 11.4 fL (7.4-10.4); Nucleated Red Blood Cells % 0 %; Platelet Count 183 10^3/uL (130-400); Red Blood Cell Count 4.44 10^6/uL (4.20-5.40); Red Cell Dist. Width 13.2 % (11.5-14.5); White Blood Cell Count 7.4 10^3/uL (4.8-10.8)
[2023-09-13 13:22] LABS: ALT (SGPT) 14 U/L (0-35); AST (SGOT) 25 U/L (14-36); Albumin 4.4 g/dl (3.5-5.0); Alkaline Phosphatase 97 U/L (38-126); Blood Urea Nitrogen 24 mg/dl (7-17); Calcium 9.6 mg/dl (8.4-10.2); Carbon Dioxide 28 mmol/L (22-30); Chloride 99 mmol/L (98-107); Glucose 108 mg/dl (70-99); Potassium 4.9 mmol/L (3.5-5.1); Sodium 136 mmol/L (135-145); Total Bilirubin 0.5 mg/dl (0.2-1.3); Total Protein 7.3 g/dl (6.3-8.2); eGFR > 60.00
[2023-09-13 13:29] VITALS: BP 174/81
[2023-09-13 13:29] LABS: Troponin I < 0.012 ng/ml
[2023-09-13 14:00] VITALS: BP 131/54
[2023-09-13] MEDS: CATAPRES 0.100000000000000006 MG PO (14:13)
--- NOTE | 2023-09-13 14:23 | ED.GENMED ---
History of Present Illness
General
Chief Complaint: Heart Rate Problem
Time Seen by Provider: 09/13/23 13:42
Travel History
Have you had any contact with someone who has COVID-19?: No
Do you have any symptoms of coronavirus? Fever > 100 degrees, chills, cough, shortness of breath, sore throat, loss of taste or smell, muscle aches, or headache?: No
History of Present Illness
History of Present Illness:
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 Patient reports symptoms started this morning when she got up,
checked her heart rate and it was in the 160s. She called her yard goods salesperson who advised coming into the hospital. Notes in the middle of August, recently changed from Coreg to diltiazem. She has been taking her medications as directed, however does
not like the side effects of the diltiazem, reports insomnia and feels that she is in A-fib more frequently. Reports that her symptoms upon arrival to the hospital have improved. Palpitations have improved. Denies chest pain or difficulty
breathing. Denies fever or cough. Denies abdominal pain or GI symptoms. Denies additional acute medical complaints
Past History
Past History
ED Past Medical History: Arrthythmia (Palpitations, questionable history of atrial fibrillation), HTN, Psychiatric (Anxiety) and Other (migraines)
ED Past Surgical History: None
Social History
Tobacco: Non-smoker
Alcohol: Occasional
Personal:
Living: with family
Family History
Family History: Unable to obtain
Phy Exam
Physical Exam
Physical Exam:
GENERAL: Alert , in no apparent distress
EYE: pupils equal and reactive
NECK: Supple, no significant adenopathy.
ENT: o/p clr, mmm.
CARDIAC: Irregularly irregular rhythm, rate controlled
LUNGS: Clear breath sounds bilaterally, no acute respiratory distress, no wheezes/rales/rhonchi
ABDOMEN: Soft, without focal tenderness, no r/g, no cvat
NEUROLOGICAL: Alert and oriented, no focal neuro deficits
SKIN: Warm and dry, skin intact.
MUSCULOSKELETAL: No edema, well perfused.
PSYCH: Normal and appropriate interaction.
Course
Orders/Labs/Results
Orders:
Orders
09/13/23 12:35
Electrocardiogram (*1) Urgent
Reason for Study: Atrial Fibrillation
EKG- Treatment ONCE
09/13/23 12:49
Complete Blood Count/With Diff Urgent
Comprehensive Metabolic Panel Urgent
Troponin I Urgent
09/13/23 14:02
EKG [Electrocardiogram (*1)] Stat
Reason for Study: Palpitations
EKG- Treatment ONCE
Clonidine [Catapres] 0.1 mg PO NOW STA
Abnormal Lab Results
09/13/23
12:49
MCH 33.3 H pg
(27.0-31.0)
MPV 11.4 H fL
(7.4-10.4)
Absolute Monos (auto) 0.8 H 10^3/uL
(0.1-0.6)
Monocytes % 10.2 H %
(1.7-9.3)
BUN 24 H mg/dl
(7-17)
Glucose 108 H mg/dl
(70-99)
09/13/23 12:49
09/13/23 12:49
Vital Signs
Initial and Last Documented VS:
Initial Vital Signs
Temp Pulse Resp BP Pulse Ox
98.4 F 129 16 167/96 99
09/13/23 12:34 09/13/23 12:34 09/13/23 12:34 09/13/23 12:34 09/13/23 12:34
Last Documented Vital Signs
Temp Pulse Resp BP Pulse Ox
98.4 F 102 13 174/81 99
09/13/23 12:34 09/13/23 13:45 09/13/23 13:45 09/13/23 13:29 09/13/23 13:45
MDM/Problems Addressed
MDM/Problems Addressed:
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 Vital signs on arrival significant for tachycardia and hypertension, however patient did not
take her clonidine today.
On exam, patient resting comfortably, notes improvement of her symptoms. EKG consistent with A-fib with elevated heart rate of 124. Patient now rate controlled, in the 80s. Unremarkable laboratory analysis, placed by nursing protocol. Troponin
undetectable. No acute ischemic abnormality on EKG. Suspect symptoms secondary to known A-fib. Patient is requesting to go back on Coreg. Will repeat EKG and discuss cardiology.
14:30 -On repeat EKG, again rate controlled. Discussed with Dr. Najera from patient's cardiology group. Feels patient can go back on the Coreg given her preference. However will require outpatient follow-up with her yard goods salesperson this week.
Patient agreeable to plan. Patient's clonidine administered in the emergency department. Feel stable for discharge. Strict return precautions communicated and patient verbalized understanding
*EKG
EKG Intrepretation Date: 09/13/23
EKG Intrepretation Time: 14:30
Interpretation: abnormal (however no significant change from prior)
Comparison EKG: no changes (07/29/23)
Heart Rate: 124
Rhythm: a-fib
[place]: normal axis
Ischemia: no ischemia
*Critical Care Note
Total Time (30-74mins, 75-104mins- exclusive of procedures): Not Applicable
ED Attending Note
-
Portions of this chart may have been created with voice recognition software.� Occasional wrong word or��sound alike� substitutions may have occurred due to the inherent limitations of voice recognition software.
Discharge Plan
Departure
Prescriptions:
No Action
levothyroxine 25 MCG tablet
25 mcg PO DAILY AT 0700
ezetimibe [Zetia] 10 MG tablet
10 mg PO DAILY
cholecalciferol (vitamin D3) [Vitamin D3] 2,000 UNIT capsule
2,000 unit PO DAILY
multivitamin Tablet
1 tab PO DAILY
lisinopril 20 mg Tablet
20 mg PO DAILY
phenoxybenzamine 10 mg Capsule
10 mg PO BID Qty: 0 0RF
acetaminophen 325 mg Tablet
650 mg PO Q4HPRN PRN (Reason: temp >102 F and/or mild pain) Qty: 0 0RF
oxycodone 5 mg Tablet
5 mg PO Q6HPRN PRN (Reason: moderate-severe pain) Qty: 28 0RF
Eliquis 5 MG tablet
5 mg PO BID Qty: 0 0RF
Rx Instructions:
Next dose will be this evening 07/29/23 8:00 pm or when you typically take it in PM
carvedilol [Coreg] 25 mg tablet
25 mg PO BID Qty: 60 1RF
Rx Instructions:
Next dose will be this evening around 10:00 pm if you are awake. If sleeping resume in AM
Interventions
Interventions:
*Risk Screen - Suicide Last Done: 09/13/23 12:34
*General Assessment Last Done: 09/13/23 12:34
*Neglect/Abuse Screening Last Done: 09/13/23 12:34
ED- Fall Risk Assessment Last Done: 09/13/23 13:28
*ED COVID-19 Vaccine History Last Done: 09/13/23 12:34
ED- Cardiac Assessment Last Done: 09/13/23 13:28
ED- Pulmonary Assessment Last Done: 09/13/23 13:28
Discharge Date and Time
Print Language: SUDANESE
[2023-09-13 15:11] VITALS: BP 143/79
== END 2023-09-13 15:15 | disposition home or self-care (01) ==
LOC: EMR 12:15
PROVIDERS: Emergency Medicine; EMERGENCY PHYSICIAN Student in an Organized Health Care Education/Training Program; FAMILY PHYSICIAN Family Medicine
DX: I48.91 Unspecified atrial fibrillation (principal); I10 Essential (primary) hypertension; M33.20 Polymyositis, organ involvement unspecified; Z79.01 Long term (current) use of anticoagulants; Z88.8 Allergy status to other drugs, medicaments and biological substances; Z91.040 Latex allergy status
CPT/HCPCS: 99284; 80053; 84484; 85025; 93005

== ENCOUNTER → 2023-09-21 10:19 | Outpatient (REF) | payer MEDICARE, BC, SELFPAY ==
[2023-09-23 19:56] LABS: Serotonin 209 ng/mL (50-220)
== END ==
LOC: REG 10:19
PROVIDERS: ATTENDING PHYSICIAN Specialist; FAMILY PHYSICIAN Family Medicine
DX: D3A.090 Benign carcinoid tumor of the bronchus and lung (principal)
CPT/HCPCS: 36415; 82384; 83835; 84260

== ENCOUNTER → 2023-10-26 10:47 | Outpatient (REF) | payer MEDICARE, BC, SELFPAY | LOC: REG 10:47 | PROVIDERS: ATTENDING PHYSICIAN Specialist; FAMILY PHYSICIAN Family Medicine | DX: I10 Essential (primary) hypertension (principal); F41.9 Anxiety disorder, unspecified; I48.0 Paroxysmal atrial fibrillation; Z86.79 Personal history of other diseases of the circulatory system | CPT/HCPCS: 83497 ==

== ENCOUNTER → 2023-11-11 10:07 | Outpatient (REF) | payer MEDICARE, BC, SELFPAY | LOC: REG 10:07 | PROVIDERS: ATTENDING PHYSICIAN Specialist; FAMILY PHYSICIAN Family Medicine | DX: Z86.79 Personal history of other diseases of the circulatory system (principal); E34.9 Endocrine disorder, unspecified; I10 Essential (primary) hypertension; D3A.090 Benign carcinoid tumor of the bronchus and lung; I48.0 Paroxysmal atrial fibrillation; E78.00 Pure hypercholesterolemia, unspecified | CPT/HCPCS: 83497 ==

== ENCOUNTER → 2024-06-15 08:22 | Outpatient (REF) | payer MEDICARE, BC, SELFPAY ==
[2024-06-15 11:49] LABS: Free T4 1.23 ng/dl (0.78-2.19)
[2024-06-15 12:03] LABS: TSH 3.12 uIU/ml (0.47-4.68)
== END ==
LOC: RCS 08:22
PROVIDERS: ATTENDING PHYSICIAN Internal Medicine Endocrinology, Diabetes & Metabolism; FAMILY PHYSICIAN Family Medicine
DX: I35.1 Nonrheumatic aortic (valve) insufficiency (principal); I48.0 Paroxysmal atrial fibrillation
CPT/HCPCS: 36415; 84439; 84443; 93306

== ENCOUNTER 2024-08-23 11:45 | Emergency (ER) | payer MEDICARE, BC, SELFPAY ==
[2024-08-23 11:48] VITALS: BP 148/102
--- NOTE | 2024-08-23 13:07 | ED.GENMED ---
History of Present Illness
General
Chief Complaint: Abdominal Pain
Source: patient
Exam Limitations: none
Time Seen by Provider: 08/23/24 12:53
History of Present Illness
History of Present Illness:
89yoF with a history of atrial fibrillation, hypertension, hyperlipidemia, hypothyroidism, GERD presenting for evaluation of right rib pain. 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
07/28/[address] German. She has been having ongoing pain in her right lower rib area since then. The pain intermittently worsens. Her pain has been more severe over the past month and a half. Pain is worse with movement and if she is constipated.
She does not like to take medications so has not been taking anything for her pain. Her blood pressure is chronically high and SBP is usually in the 150s. Her blood pressure becomes very high, sometimes up to the 200s, when her pain worsens. She
spoke with her manager performance improvement today who told her to go to the ED. She denies any fevers, chest pain, shortness of breath, pleuritic pain, difficulty urinating.
Past History
Past History
ED Past Medical History: Arrthythmia (Palpitations, questionable history of atrial fibrillation), HTN, Psychiatric (Anxiety) and Other (migraines)
ED Past Surgical History: None
Social History
Tobacco: Non-smoker
Alcohol: Occasional
Personal:
Living: with family
Family History
Family History: Unable to obtain
Phy Exam
General Physical Exam
General Presentation: well appearing and no apparent distress
General Skin: warm and dry
General Habitus: normal
General Mental: alert
ENT Exam
ENT Exam: normocephalic
Cardiovascular Exam
Cardiovascular Exam: regular rate/rhythm and no murmur
Pulmonary Exam
Pulmonary Exam: lungs clear, no respiratory distress, no rales, no crackles, no rhonchi, no wheezing and other (+Tenderness to R lower anterior ribcage. Healed surgical scar noted. No skin changes or crepitus.)
Gastrointestinal Exam
Gastrointestinal Exam: non tender, soft, non distended and other (No abdominal tenderness and Howard's sign negative)
Skin Exam
Skin Exam: normal color and warm/dry
Psychiatric Exam
Psychiatric Exam: normal mood/affect
Course
Orders/Labs/Results
Orders:
Orders
08/23/24 13:06
Electrocardiogram (*1) Urgent
Reason for Study: Abdominal Pain
EKG- Treatment ONCE
CR Ribs-right 3 Vw W/pa Chest* Urgent
Comment:
Reason For Exam: R lower rib pain
US Abdomen Complete/Upper Urgent
Comment:
Reason For Exam: RUQ pain
08/23/24 13:16
Basic Metabolic Panel Urgent
Complete Blood Count/With Diff Urgent
Lipase Urgent
Troponin I Urgent
08/23/24 14:53
Hkqga-Wasw-Vwinpux Urgent
Potassium Urgent
Abnormal Lab Results
08/23/24
13:16
MCH 33.6 H pg
(27.0-31.0)
Plt Count 129 L 10^3/uL
(130-400)
MPV 12.7 H fL
(7.4-10.4)
Glucose 118 H mg/dl
(70-99)
08/23/24 13:16
08/23/24 14:53
Vital Signs
Initial and Last Documented VS:
Initial Vital Signs
Temp Pulse Resp BP Pulse Ox
97.6 F 67 16 148/102 98
08/23/24 11:48 08/23/24 11:48 08/23/24 11:48 08/23/24 11:48 08/23/24 11:48
Last Documented Vital Signs
Temp Pulse Resp BP Pulse Ox
97.6 F 63 17 170/85 97
08/23/24 11:48 08/23/24 17:00 08/23/24 17:00 08/23/24 17:00 08/23/24 17:00
MDM/Problems Addressed
Differential Diagnosis Includes:
89yoF here with R lower rib pain. Ongoing since having a R lung surgery last year. Worsening x 1.5 months. Worse with movement. Also concerned that her BP becomes high when her pain increases. BP 148/102 on arrival. Remainder of vitals are stable.
She is well appearing in no distress. There is reproducible rib tenderness on exam. No abdominal tenderness noted. Differential diagnosis includes but is not limited to: musculoskeletal, pleurisy, pneumonia, biliary pathology, less likely cardiac
Initial ED plan: Check cardiac labs, lipase, EKG, CXR, and upper abdominal ultrasound.
*EKG
Interpreted by ED Provider?: Yes
EKG Intrepretation Date: 08/23/24
Heart Rate: 62
Rate: normal
Rhythm: sinus
[place]: normal axis
Interval: normal interval
QRS Pattern: normal QRS
Ischemia: no ischemia
*Critical Care Note
Total Time (30-74mins, 75-104mins- exclusive of procedures): Not Applicable
Update Note
Update Note:
Labs overall unremarkable including normal renal function, LFTs, and lipase. EKG shows NSR without ischemic changes and troponin WNL. CXR clear. There is a delay in the radiology report of the ultrasound being published but per discussion with
radiologist, this is normal without acute findings. Suspect pain is related to prior surgery and possible scar tissue vs. musculoskeletal. Supportive care discussed including heat, lidocaine patch, and Tylenol. She was encouraged to f/u with her
manager performance improvement regarding her blood pressure. Patient in agreement with plan and was discharged in stable condition.
ED Attending Note
-
Portions of this chart may have been created with voice recognition software.� Occasional wrong word or��sound alike� substitutions may have occurred due to the inherent limitations of voice recognition software.
Discharge Plan
Departure
Patient Disposition: Home (Routine Discharge)
Date of Disposition: 08/23/24
Time of Disposition: 17:33
Patient with high blood pressure during this ER visit?: Yes
Discharge Problem:
Rib pain on right side
Instructions: Costochondritis
Prescriptions:
No Action
levothyroxine 25 MCG tablet
25 mcg PO DAILY AT 0700
ezetimibe [Zetia] 10 MG tablet
10 mg PO DAILY
cholecalciferol (vitamin D3) [Vitamin D3] 2,000 UNIT capsule
2,000 unit PO DAILY
multivitamin Tablet
1 tab PO DAILY
lisinopril 20 mg Tablet
20 mg PO DAILY
phenoxybenzamine 10 mg Capsule
10 mg PO BID Qty: 0 0RF
acetaminophen 325 mg Tablet
650 mg PO Q4HPRN PRN (Reason: temp >102 F and/or mild pain) Qty: 0 0RF
oxycodone 5 mg Tablet
5 mg PO Q6HPRN PRN (Reason: moderate-severe pain) Qty: 28 0RF
Eliquis 5 MG tablet
5 mg PO BID Qty: 0 0RF
Rx Instructions:
Next dose will be this evening 07/29/23 8:00 pm or when you typically take it in PM
carvedilol [Coreg] 25 mg tablet
25 mg PO BID Qty: 60 1RF
Rx Instructions:
Next dose will be this evening around 10:00 pm if you are awake. If sleeping resume in AM
Referrals:
Mark Coronel DO [Family Provider] -
Activity Restrictions/Additional Instructions:
Apply heat to affected area. Use lidocaine patches daily (12 hours on, 12 hours off). Take Tylenol 650mg every 6 hours as needed for pain.
Please follow-up with your manager performance improvement and family doctor regarding your blood pressure. Return to the ER with any new or worsening symptoms.
Interventions
Interventions:
*Risk Screen - Suicide Last Done: 08/23/24 11:48
*General Assessment Last Done: 08/23/24 13:10
*Neglect/Abuse Screening Last Done: 08/23/24 11:48
*Nursing Disposition Last Done: 08/23/24 17:44
WB-Dbjxqb-Otvlcbench Assessment Last Done: 08/23/24 13:10
Discharge Date and Time
Discharge Date/Time: 08/23/24 17:45
Print Language: ICELANDIC
[2024-08-23 13:17] VITALS: BP 174/83
[2024-08-23 13:23] LABS: % Basophils 1.4 % (0-2); % Eosinophils 3.8 % (0-6); % Immature Granulocytes 0.3 % (0-0.5); % Lymphocytes 28.7 % (20.5-51.1); % Monocytes 9.2 % (1.7-9.3); % Neutrophils 56.6 % (42.2-75.2); Absolute Basophils 0.1 10^3/uL (0-0.2); Absolute Eosinophils 0.2 10^3/uL (0-0.7); Absolute Lymphocytes 1.7 10^3/uL (1.2-3.4); Absolute Monocytes 0.5 10^3/uL (0.1-0.6); Absolute Neutrophils 3.3 10^3/uL (1.4-6.5); Hematocrit 41.8 % (37.0-47.0); Hemoglobin 14.4 g/dL (12.0-16.0); Mean Corp Hgb Conc. 34.4 g/dL (33.0-37.0); Mean Corpuscular Hgb 33.6 pg (27.0-31.0); Mean Corpuscular Volume 97.7 fL (81.0-99.0); Mean Platelet Volume 12.7 fL (7.4-10.4); Nucleated Red Blood Cells % 0 %; Platelet Count 129 10^3/uL (130-400); Red Blood Cell Count 4.28 10^6/uL (4.20-5.40); Red Cell Dist. Width 12.9 % (11.5-14.5); White Blood Cell Count 5.8 10^3/uL (4.8-10.8)
[2024-08-23 13:50] LABS: Troponin I < 0.012 ng/ml
[2024-08-23 13:58] LABS: Blood Urea Nitrogen 17 mg/dl (7-17); Calcium 9.4 mg/dl (8.4-10.2); Carbon Dioxide 30 mmol/L (22-30); Chloride 103 mmol/L (98-107); Glucose 118 mg/dl (70-99); Lipase 177 U/L (23-300); Sodium 137 mmol/L (135-145); eGFR > 60.00
[2024-08-23 15:00] VITALS: BP 193/78
[2024-08-23 15:14] LABS: ALT (SGPT) 18 U/L (0-35); AST (SGOT) 27 U/L (14-36); Albumin 4.7 g/dl (3.5-5.0); Alkaline Phosphatase 80 U/L (38-126); Direct Bilirubin 0.1 mg/dl (0.0-0.4); Potassium 4.6 mmol/L (3.5-5.1); Total Bilirubin 0.8 mg/dl (0.2-1.3); Total Protein 7.4 g/dl (6.3-8.2)
[2024-08-23 17:00] VITALS: BP 170/85
== END 2024-08-23 17:45 | disposition home or self-care (01) ==
LOC: EMR 11:45
PROVIDERS: Physician Assistant; EMERGENCY PHYSICIAN Emergency Medicine; FAMILY PHYSICIAN Family Medicine
DX: R07.81 Pleurodynia (principal); R10.11 Right upper quadrant pain; R11.0 Nausea; I48.91 Unspecified atrial fibrillation; I10 Essential (primary) hypertension; E78.5 Hyperlipidemia, unspecified; E03.9 Hypothyroidism, unspecified; K21.9 Gastro-esophageal reflux disease without esophagitis; F41.9 Anxiety disorder, unspecified; G43.909 Migraine, unspecified, not intractable, without status migrainosus; Z98.890 Other specified postprocedural states
CPT/HCPCS: 99285; 71101; 76700; 80048; 80076; 83690; 84132; 84484; 85025; 93005

== ENCOUNTER → 2024-10-05 08:51 | Outpatient (REF) | payer MEDICARE, BC, SELFPAY ==
[2024-10-05 13:57] LABS: Microalbumin, Random Urine <0.6 mg/dl (0.6-1.7)
== END ==
LOC: REG 08:51
PROVIDERS: ATTENDING PHYSICIAN Specialist; FAMILY PHYSICIAN Family Medicine
DX: R09.89 Other specified symptoms and signs involving the circulatory and respiratory systems (principal)
CPT/HCPCS: 82043; 82570

== ENCOUNTER → 2024-11-10 12:54 | Outpatient (REF) | payer MEDICARE, BC, SELFPAY | LOC: RAD 12:54 | PROVIDERS: ATTENDING PHYSICIAN Family Medicine | DX: M85.80 Other specified disorders of bone density and structure, unspecified site (principal); M81.0 Age-related osteoporosis without current pathological fracture | CPT/HCPCS: 77080 ==

== ENCOUNTER 2025-02-16 10:24 | Emergency (ER) | payer MEDICARE, BC, SELFPAY ==
[2025-02-16 10:31] VITALS: BP 169/103
--- NOTE | 2025-02-16 11:27 | ED.GENMED ---
History of Present Illness
General
Chief Complaint: Heart Rate Problem
Source: patient
Time Seen by Provider: 02/16/25 11:27
History of Present Illness
History of Present Illness:
89-year-old female with past medical history of atrial fibrillation, hypertension, hyperlipidemia, mitral regurgitation, hypothyroidism presenting to the emergency department for evaluation after experiencing palpitations feeling as if she might be
in an episode of atrial fibrillation. Patient believes this is due to being constipated a couple of days ago requiring her to strain and then feeling the more constant palp patients. She denies any chest pain, shortness of breath (triage noted to
say shortness of breath however she declined this to me), diaphoresis, exertional dyspnea, orthopnea, lower extremity edema, cough, fevers or infectious symptoms or any other concerns.
Past History
Past History
ED Past Medical History: Arrthythmia (Palpitations, questionable history of atrial fibrillation), HTN, Valvular disease, Hypothyroidism, Psychiatric (Anxiety) and Other (migraines)
ED Past Surgical History: Cardiac and Gynecological
Social History
Tobacco: Non-smoker
Alcohol: Occasional
Drug: None
Personal:
Living: with family
Family History
Family History: Unable to obtain
Review of Systems
Review of Systems
All Other Systems: ROS reviewed and negative except as documented in HPI and ROS
Phy Exam
Physical Exam
Physical Exam:
GENERAL: Alert , in no apparent distress
HEAD: Normocephalic atraumatic
EYE: conjunctiva clear
NECK: Supple
ENT: o/p clr, mmm.
CARDIAC: Regular rate and rhythm, frequent PACs seen on telemetry
LUNGS: Clear breath sounds bilaterally, no acute respiratory distress, no wheezes/rales/rhonchi
NEUROLOGICAL: Alert and oriented
SKIN: Warm and dry, skin intact.
MUSCULOSKELETAL: well perfused.
PSYCH: Normal and appropriate interaction.
Scores
Heart Failure Risk
Heart Failure Risk Score: Not Applicable
Heart Score for Chest Pain Patients
STEMI patient?: Not applicable
Withdrawal Assessment of Alcohol
Withdrawal Assessment Completed?: Not applicable
Course
Orders/Labs/Results
Orders:
Orders
02/16/25 10:34
ECG [Electrocardiogram (*1)] Urgent
Reason for Study: Palpitations
02/16/25 10:35
EKG- Treatment ONCE
02/16/25 12:14
Complete Blood Count/With Diff Urgent
Comprehensive Metabolic Panel Urgent
NT-proBNP Urgent
Troponin I Urgent
02/16/25 12:52
CR Chest - 2 Views Urgent
Comment:
Reason For Exam: palpitations
Abnormal Lab Results
02/16/25
12:14
RBC 4.18 L 10^6/uL
(4.20-5.40)
MCH 33.3 H pg
(27.0-31.0)
MPV 13.5 H fL
(7.4-10.4)
Monocytes % 9.5 H %
(1.7-9.3)
Sodium 134 L mmol/L
(135-145)
Potassium 5.4 H mmol/L
(3.5-5.1)
Glucose 107 H mg/dl
(70-99)
02/16/25 12:14
02/16/25 12:14
Vital Signs
Initial and Last Documented VS:
Initial Vital Signs
Temp Pulse Resp BP Pulse Ox
97.7 F 90 16 169/103 98
02/16/25 10:31 02/16/25 10:31 02/16/25 10:31 02/16/25 10:31 02/16/25 10:31
Last Documented Vital Signs
Temp Pulse Resp BP Pulse Ox
97.7 F 102 14 163/112 98
02/16/25 10:31 02/16/25 14:00 02/16/25 14:00 02/16/25 14:00 02/16/25 14:00
MDM/Problems Addressed
Differential Diagnosis Includes:
PAC/PVC
Afib/other arrhythmia
Valvular disease
ACS
CHF
Electrolyte Imbalance
MDM/Problems Addressed:
89-year-old female presenting to the ER for evaluation of palpitations, suspecting she may be in A-fib. EKG done in triage shows normal sinus rhythm with PACs. Patient remains in similar at time of my exam on telemetry. She is in no acute
distress. Patient is otherwise hemodynamically stable. Will check labs and continue to monitor on telemetry. Assuming patient remains stable without any abnormalities plan to discharge home
*Radiology
Radiology exam reviewed: preliminary read by ED provider (unchanged from last, small right pleural effusion)
*Pulse Oximetry
SaO2: 97
Oxygen Mode of Delivery: Room air
Patient hypoxic: no
*EKG
Heart Rate: 89
Rate: normal
Rhythm: sinus and PAC's
[place]: normal axis
Ischemia: non-specific ST changes
*Stonemason Apprentice Interpretation
Rate: normal
Heart Rate: 81
Rhythm: sinus and PAC's
*Critical Care Note
Total Time (30-74mins, 75-104mins- exclusive of procedures): Not Applicable
Data Reviewed
Review of Other/Old Records Reveals: Labs and Records
Patient Management
Escalation/DeEscalation of care consider admission/obs:
Patient remains hemodynamically stable and in no acute distress. No signs of A-fib on telemetry. She does have frequent PACs which I do suspect causing her current symptoms. Encouraged close follow-up with her cardiology team. Patient aware of
return precautions to the ER.
ED Attending Note
-
Portions of this chart may have been created with voice recognition software.� Occasional wrong word or��sound alike� substitutions may have occurred due to the inherent limitations of voice recognition software.
Discharge Plan
Departure
Patient Disposition: Home (Routine Discharge)
Date of Disposition: 02/16/25
Time of Disposition: 14:45
Patient with high blood pressure during this ER visit?: Yes
Discharge Problem:
Palpitations
Instructions: Palpitations (DC)
Prescriptions:
No Action
levothyroxine 25 MCG tablet
25 mcg PO DAILY AT 0700
ezetimibe [Zetia] 10 MG tablet
10 mg PO DAILY
cholecalciferol (vitamin D3) [Vitamin D3] 2,000 UNIT capsule
2,000 unit PO DAILY
multivitamin Tablet
1 tab PO DAILY
lisinopril 20 mg Tablet
20 mg PO DAILY
phenoxybenzamine 10 mg Capsule
10 mg PO BID Qty: 0 0RF
acetaminophen 325 mg Tablet
650 mg PO Q4HPRN PRN (Reason: temp >102 F and/or mild pain) Qty: 0 0RF
oxycodone 5 mg Tablet
5 mg PO Q6HPRN PRN (Reason: moderate-severe pain) Qty: 28 0RF
Eliquis 5 MG tablet
5 mg PO BID Qty: 0 0RF
Rx Instructions:
Next dose will be this evening 07/29/23 8:00 pm or when you typically take it in PM
carvedilol [Coreg] 25 mg tablet
25 mg PO BID Qty: 60 1RF
Rx Instructions:
Next dose will be this evening around 10:00 pm if you are awake. If sleeping resume in AM
Referrals:
Mark Coronel DO [Family Provider, Family Practice]
Interventions
Interventions:
*Risk Screen - Suicide Last Done: 02/16/25 10:35
*General Assessment Last Done: 02/16/25 10:35
*Neglect/Abuse Screening Last Done: 02/16/25 14:03
*ED- Fall Risk Assessment Last Done: 02/16/25 14:03
*ED COVID-19 Vaccine History Last Done: 02/16/25 14:03
*ED Influenza Vaccine History Last Done: 02/16/25 14:03
*Nursing Disposition Last Done: 02/16/25 15:04
ED- Cardiac Assessment Last Done: 02/16/25 12:27
ED- Pulmonary Assessment Last Done: 02/16/25 12:27
Discharge Date and Time
Discharge Date/Time: 02/16/25 15:06
Print Language: NAURUAN
[2025-02-16 12:00] VITALS: BP 145/65
[2025-02-16 12:25] LABS: Hematocrit 40.2 % (37.0-47.0); Hemoglobin 13.9 g/dL (12.0-16.0); Mean Corp Hgb Conc. 34.6 g/dL (33.0-37.0); Mean Corpuscular Volume 96.2 fL (81.0-99.0); Nucleated Red Blood Cells % 0 %; Platelet Count 211 10^3/uL (130-400); Red Cell Dist. Width 13.2 % (11.5-14.5)
[2025-02-16 12:43] LABS: ALT (SGPT) 15 U/L (0-35); AST (SGOT) 23 U/L (14-36); Albumin 4.1 g/dl (3.5-5.0); Alkaline Phosphatase 75 U/L (38-126); Blood Urea Nitrogen 17 mg/dl (7-17); Calcium 9.1 mg/dl (8.4-10.2); Carbon Dioxide 28 mmol/L (22-30); Chloride 101 mmol/L (98-107); Glucose 107 mg/dl (70-99); Potassium 5.4 mmol/L (3.5-5.1); Sodium 134 mmol/L (135-145); Total Protein 6.7 g/dl (6.3-8.2); eGFR > 60.00
[2025-02-16 12:48] LABS: Troponin I < 0.012 ng/ml
[2025-02-16 13:00] VITALS: BP 165/85
[2025-02-16 14:00] VITALS: BP 163/112
== END 2025-02-16 15:06 | disposition home or self-care (01) ==
LOC: EMR 10:24
PROVIDERS: Physician Assistant Medical; EMERGENCY PHYSICIAN Student in an Organized Health Care Education/Training Program; FAMILY PHYSICIAN Family Medicine
DX: R00.2 Palpitations (principal); I48.91 Unspecified atrial fibrillation; I10 Essential (primary) hypertension; E78.00 Pure hypercholesterolemia, unspecified; I34.0 Nonrheumatic mitral (valve) insufficiency; E03.9 Hypothyroidism, unspecified
CPT/HCPCS: 99283; 71046; 80053; 83880; 84484; 85025; 93005

== ENCOUNTER → 2025-02-22 06:39 | Day surgery (SDC) | payer MEDICARE, BC, SELFPAY ==
--- NOTE | 2025-02-22 09:09 | ITS.CL.CARDI ---
[employer] [facility] - Cardioversion
Cardioversion
Procedure Report:
Date of Procedure:
Procedure: Cardioversion
Indication: Symptomatic atrial fibrillation
Performing Physician: Gaby Irwin MD
Technique: The patient was brought to the holding area. Signed informed consent was obtained. A time out was called and performed. The patient was anesthetized by the anesthesia service. Anticoagulation status was reviewed and appropriate. R2 pads
were placed anteriorly and posteriorly. A 200 J synchronized biphasic shock restored normal sinus rhythm without significant bradycardia. There were no complications.
Conclusion: Uncomplicated cardioversion from atrial fibrillation to sinus rhythm.
Recommendation: Routine post cardioversion care. Continue fci anticoagulation.
== END ==
LOC: CATH 06:39
PROVIDERS: ATTENDING PHYSICIAN Internal Medicine; FAMILY PHYSICIAN Family Medicine; OTHER PHYSICIAN Internal Medicine Cardiovascular Disease
DX: I48.91 Unspecified atrial fibrillation (principal); Z79.01 Long term (current) use of anticoagulants
CPT/HCPCS: 92960; 93005

== ENCOUNTER → 2025-02-28 09:39 | Outpatient (REF) | payer MEDICARE, BC, SELFPAY ==
[2025-02-28 10:41] LABS: Hematocrit 40.8 % (37.0-47.0); Hemoglobin 14.0 g/dL (12.0-16.0); Mean Corp Hgb Conc. 34.3 g/dL (33.0-37.0); Mean Corpuscular Volume 99.5 fL (81.0-99.0); Nucleated Red Blood Cells % 0 %; Platelet Count 163 10^3/uL (130-400); Red Cell Dist. Width 13.5 % (11.5-14.5)
[2025-02-28 10:48] LABS: INR 1.03; PT 14.0 Sec (11.4-14.6)
[2025-02-28 10:53] LABS: ALT (SGPT) 25 U/L (0-35); AST (SGOT) 24 U/L (14-36); Albumin 4.7 g/dl (3.5-5.0); Alkaline Phosphatase 79 U/L (38-126); Blood Urea Nitrogen 15 mg/dl (7-17); Calcium 9.5 mg/dl (8.4-10.2); Carbon Dioxide 31 mmol/L (22-30); Chloride 101 mmol/L (98-107); Glucose 109 mg/dl (70-99); Magnesium 2.1 mg/dl (1.6-2.3); Potassium 4.6 mmol/L (3.5-5.1); Sodium 139 mmol/L (135-145); Total Protein 7.3 g/dl (6.3-8.2); eGFR > 60.00
== END ==
LOC: SDSPAT 09:39
PROVIDERS: ATTENDING PHYSICIAN Internal Medicine Cardiovascular Disease; FAMILY PHYSICIAN Family Medicine; OTHER PHYSICIAN Internal Medicine Cardiovascular Disease
DX: I48.0 Paroxysmal atrial fibrillation (principal)
CPT/HCPCS: 36415; 80053; 83735; 85025; 85610; 86850; 86900; 86901

== ENCOUNTER 2025-03-02 06:41 | Day surgery (SDC) | payer MEDICARE, BC, SELFPAY ==
[2025-02-28 10:04] VITALS: BMI 23.8
[2025-03-02] VITALS (17 sets, daily range): BP systolic 100–206; BP diastolic 49–89; BMI 23.7
--- NOTE | 2025-03-02 10:42 | ITS.CL.ABL ---
Senior Loan Officer - Ablation
Ablation
Procedure Report:
Primary Filler Sifter Machine: Dr Georges Carl
Procedure Date: 03/02/2025
Patient History:
Patient is a pleasant 89-year-old female with a past medical history significant for valvular heart disease, hypertension, mixed hyperlipidemia, paroxysmal atrial fibrillation status post ablation 2022, recurrence of symptomatic paroxysmal atrial
fibrillation and symptomatic paroxysmal typical atrial flutter
See H&P for complete details.
Indication:
Symptomatic paroxysmal atrial flutter, typical
Symptomatic paroxysmal atrial fibrillation
Arrhythmia Specific History:
Prior Medical Therapies for Rate and Rhythm Control:
X Beta-helena
[ ] Calcium channel-helena
[ ] Amiodarone
[ ] Dronederone
[ ] Sotalol
[ ] Flecainide
[ ] Dofetilide
[ ] Options limited by bradycardia
[ ] Options limited by comorbid renal disease
Prior Procedural Therapies for AF/AFL:
[ ] Cardioversion
X Pulmonary Vein Isolation - CRYO PVI 03/2023
[ ] Posterior Wall Isolation
[ ] Additional lines (Specify)
[ ] Surgical Monge-MAZE or PVI (Specify)
Procedure Performed:
X AF ablation procedure (90648) -- includes LA/CS pacing, trans-septal, 3D mapping, + ICE
[ ] +IV drug (93946)
X +Other Arrhythmia (39967) -- CTI ablation for typical atrial flutter
X +Other AF Line/ablation (97335) x2 -- floor line, roof line, posterior wall isolation
Risks and expected recovery has been explained in detail. Alternative options have been explored, and in a shared-decision making fashion we have decided that this was the most appropriate procedure.
Method
NPO status confirmed. Grounding pad applied. Defibrillator pads applied. Continuous surface ECG, pulse oximetry, and blood pressure were monitored. Procedure was performed under general anesthesia, with anesthesia services.
Both groins were clipped, prepped with Chloraprep, and draped in sterile fashion. Time out was called. Local anesthesia administered with bupivacaine. The right femoral vein was accessed for catheter placement, using ultrasound guidance (images
saved to record), micro-puncture needle/wire, and modified seldinger technique. 3 sheaths were placed. The following catheters were used:
[ ] Tacticath SE (D/F Curve) ablation catheter
X Viewflex 9Fr ICE catheter
X Inquiry decapolar 6Fr diagnostic catheter
[ ] CRD Hex 6Fr
X Agilis 11.5 Fr Steerable Sheath
X Sphere-9 Ablation catheter
[ ] Advisor HD Grid Mapping Catheter, SE
[ ] Acuson AcuNav 8 Fr ICE catheter
[ ] Other: [ ]
A multipolar catheter were advanced to the coronary sinus. Intracardiac ultrasound (ICE) was carefully advanced into the right atrium to guide sheath placement over a J-wire, catheter placement, guide trans-septal puncture, identify potential
complications, identify anatomic structures and ensure proper contact between ablation catheter and tissue. A trace basal LV pericardial effusion was noted at the initiation of procedure. This remained unchanged throughout procedure and a case
completion.
Heparin was given to achieve and maintain a target ACT of 300-400 seconds throughout the procedure.
The Sphere-9 mapping/ablation catheter (through long steerable sheath was used to map, record, pace, and ablate.) Three-dimensional electroanatomic mapping was utilized with careful attention to anatomic landmarks, including the coronary sinus,
IVC-RA and SVC-RA junction, tricuspid valve annulus, and region of the His bundle electrogram. Clockwise and counterclockwise trans-isthmus times were determined. An ablation line was created from the tricuspid annulus to the IVC in the 6:00
position (YORUBA clock/caudal EAM projection). Prior to ablation, glycopyrrolate was provided. A combination of RF and PF was used with careful monitoring of impedance, AV conduction, power, and temperature. Ablation continued until a line was complete
from the tricuspid valve annulus to the IVC-RA junction. Clockwise and counterclockwise trans-isthmus times were determined, and RA activation patterns confirmed bidirectional block.
Next, we turned our attention to the AF Ablation.
Trans-septal access was performed under ICE guidance. The trans-septal puncture was performed with a SafeSept wire through a Brockenbrough needle assembly through the steerable sheath. The wire was visualized as it entered the LSPV and system
advanced under ICE guidance and fluoroscopy into the LA. The Brockenbrough needle assembly, SafeSept wire and sheath dilator were removed under negative pressure. LA pressure was measured and recorded.
ICE and 3D mapping was performed to identify relevant cardiac structures. A careful 3D map was created to assess for regions of low-voltage and abnormal electrogram signals using Sphere-9 catheter. Additional mapping was performed as outlined below.
Sphere 9 catheter was advanced into the left atrium. Electroanatomic mapping was performed using the Sphere 9 catheter. Reconnection was noted at the left superior, left inferior, right inferior pulmonary veins. There was patchy signal along the
roof, floor, and posterior wall with fractionated electrograms. Pulmonary vein isolation was performed using pulsed field ablation in a circumferential manner. Contact was visualized via EAM, ICE, fluoroscopy, and EGM signals.
After accomplishing pulmonary venous isolation, mapping identified additional areas likely to be extra PV contributors to atrial fibrillation. These areas demonstrated patchy low voltage as well as complex fractionated electrograms. These areas can
be sites for the formation of rotors which can drive and maintain atrial fibrillation. These areas are known to be significant contributors to initiation and perpetuation of atrial fibrillation.
Additional energy applications/additional ablation sets targeted extra PV contributors to atrial fibrillation.
Targets for additional PFA ablation included: LA posterior wall targeted with pulsed electric field energy isolating the posterior wall of the left atrium. Posterior wall isolation was performed by aforementioned methods using Sphere-9 catheter.
After ablation of the posterior wall, targets remained including:
- Inferior LA floor
- Anterior LA roof
These areas were ablated using pulsed electric field energy eliminating the extra PV contributors to atrial fibrillation.
Following completion of ablation lesions, a post-ablation voltage/activation map was performed in sinus rhythm. Entrance and exit block were confirmed for each vein and the posterior wall.
Catheter and sheath were removed from the left atrium and post-ablation intracardiac echo evaluation was consistent with pre-ablation with no changes and no change to pericardial effusion and there is no left atrial thrombus or left ventricle
thrombus seen. Electrophysiology study was performed. No induction of arrhythmias were noted. Acute reconnection was noted on the CTI line. Ablation was performed along the CTI demonstrating bidirectional block with CS pacing. Bidirectional
transisthmus time was noted. Split potentials were noted along the ablation line. Following waiting period, bidirectional block remained. Hemostasis was obtained with figure of 8 stitch for each groin and with manual pressure. Protamine was used
for reversal.
Estimated Blood Loss
5 mL
Complications
None
Fluoroscopy: 5.2 minutes; 19.45 mGy; DAP 2.86
LA Pressure: Pre 9 mmHg, post 9 mmHg
Baseline Intervals:
Rhythm: SR
HI: 195 ms
QRS: 92 ms
QT: 340 ms
QTc: 413 ms
A-A: 677 ms
R-R: 677 ms
Post-Procedure Intervals:
HI: 175 ms
QRS: 98 ms
QT: 469 ms
QTc: 439 ms
A-A: 1140 ms
R-R: 1140 ms
AVWB: 450 ms
AVERP: 600/380 ms
AERP: 600/210 ms
Recommendations
- Bedrest with straight-leg precautions as ordered
- Admit with anticipate discharge home tomorrow after overnight observation
- Resume home medications as indicated
- Ok to resume anticoagulation tonight if patient and groin sites stable
- Plan for follow-up in office as scheduled
Milad Arroyo DO, FACC, RS
Clinical Cardiac Planogrammer
cc: Dr Georges Carl; Dr Mark Coronel
[2025-03-02 11:34] LABS: ACT-LR - POC 318 Seconds (116-155)
[2025-03-02 11:49] LABS: ACT-LR - POC 358 Seconds (116-155)
[2025-03-02 12:13] LABS: ACT-LR - POC 342 Seconds (116-155)
[2025-03-02 12:35] LABS: ACT-LR - POC 388 Seconds (116-155)
[2025-03-02 13:01] LABS: ACT-LR - POC 150 Seconds (116-155)
--- NOTE | 2025-03-02 16:43 | CM ---
Chart reviewed. Patient is independent of ADLS, lives alone in a 2 STH, 2 JASON, 0 DME. Patient with supportive friends to assist. Plan is for the patient to return home. CM to follow
--- NOTE | 2025-03-02 19:05 | PTCARENOTE ---
~0906-0970: Patient received from [facility] via bed. AOx4, NSR 60-70s, SBP 130s-140s, RA satting 97%, lungs diminished in bases. R groin soft CDI with figure of 8 sutures intact. Pt denies pain at this time. Pt remains bedrest, HOB elevated to 30
degrees. Face with petechiae currently, possibly from adhesive from procedure, patient refused benedryl and requests wet cloth instead. Admission charting completed. Pt oriented to room and callbell system. All needs met at this time, call noguera
within reach.
~9635-0743: Patient bedrest at this time. Figure of 8 sutures removed and new dressing applied. Site soft and CDI. VSS. All needs met, call noguera within reach.
~3021-7891: Patient standby assist to bathroom to void then sat up to eat dinner. Groin site CDI and soft. VSS. All needs met at this time, call noguera within reach. Handoff report given to nightshift RN.
[2025-03-02] MEDS: CATAPRES 0.1 MG PO (19:41)
[2025-03-02] MEDS: ELIQUIS 5 MG PO (19:41)
[2025-03-02] MEDS: COREG 25 MG PO (19:41)
[2025-03-02] MEDS: COLACE 200 MG PO (22:28)
[2025-03-02] MEDS: ZETIA 10 MG PO (22:28)
[2025-03-02] MEDS: ZESTRIL 20 MG PO (22:28)
--- NOTE | 2025-03-02 23:15 | PTCARENOTE ---
Received patient at change of shift. SR on the monitor, HR in the 60s. VSS. R groin dressing CDI. No complaints from pt at this time, call noguera within reach.
[2025-03-03 02:07] VITALS: BP 129/62
[2025-03-03 02:46] LABS: Hematocrit 35.0 % (37.0-47.0); Hemoglobin 12.1 g/dL (12.0-16.0); Mean Corp Hgb Conc. 34.6 g/dL (33.0-37.0); Mean Corpuscular Volume 97.2 fL (81.0-99.0); Platelet Count 194 10^3/uL (130-400); Red Cell Dist. Width 13.9 % (11.5-14.5)
[2025-03-03 02:49] VITALS: BMI 23.8
[2025-03-03 02:56] LABS: Blood Urea Nitrogen 16 mg/dl (7-17); Calcium 8.6 mg/dl (8.4-10.2); Carbon Dioxide 28 mmol/L (22-30); Chloride 104 mmol/L (98-107); Estimated Creatinine Clearance 54 ml/min; Glucose 101 mg/dl (70-99); Magnesium 1.8 mg/dl (1.6-2.3); Potassium 4.1 mmol/L (3.5-5.1); Sodium 134 mmol/L (135-145); eGFR > 60.00
[2025-03-03] MEDS: SYNTHROID 25 MCG PO (06:15)
[2025-03-03 08:12] VITALS: BP 124/53
[2025-03-03] MEDS: DEMADEX 5 MG PO (08:33)
[2025-03-03] MEDS: PROTONIX 20 MG PO (08:33)
[2025-03-03] MEDS: ELIQUIS 5 MG PO (08:34)
[2025-03-03] MEDS: COREG 25 MG PO (08:34)
--- NOTE | 2025-03-03 08:36 | W.PN.CARDCBS ---
Addendum entered and electronically signed by Billy Perry MD 03/03/25 09:21:
Patient seen and examined
Agree with JUSTIN Fam's note and assessment
Reviewed telemetry sinus rhythm
Patient does not note any postoperative issue
Reviewed procedure report and discussion with procedure physician
Exam:
H&T normocephalic atraumatic
Nonfocal neurologically
JVP 6
Cor regular no murmur
Lungs are clear to bilaterally
Abdomen soft nontender positive bowel sounds
Right groin access site clean dry and intact
PCP: Dr. Sherman
Cardiology: Dr. Carl
EP: Dr. Arroyo
Impression:
Admitted for elective PVI ablation 03/02/2025
Paroxysmal atrial fibrillation
Tikosyn loaded 01/11/23
s/p CV 12/21/2022
s/p PVI cryo ablation 03/26/2023
s/p CV 02/22/2025
s/p PVI ablation with additional ablation sets of inferior LA floor and anterior LA roof 03/02/2025hronic Eliquis OAC
HTN
Hyperlipidemia
Hypothyroidism with h/o thyroid nodule
Anxiety
Echo 11/17/21: EF 60-65%, normal diastolic function, mild MR, no , moderate aortic regurgitation, mild TR�
TIERNEY 03/02/2025: EF 60 to 65%. No left atrial appendage thrombus. Mild to moderate MR.
Plan:
- Stable postoperative course
-Per review of telemetry patient remains in sinus rhythm. EKG 03/03/2025 stable showing normal sinus rhythm
-Tolerating anticoagulation
-PPI daily for 30 days
-Continue all other cardiac medications without change
-Outpatient cardiac follow-up arranged
-Stable for discharge
Original Note:
Today's Communication / Plan
-
Status post PVI ablation 03/02/2025. Remains in sinus rhythm
Resumed on anticoagulation
Continue all other cardiac medications without change
Outpatient cardiology follow-up has been arranged
Impression / Plan
-
PCP: Dr. Sherman
Cardiology: Dr. Carl
EP: Dr. Arroyo
Impression:
Admitted for elective PVI ablation 03/02/2025
Paroxysmal atrial fibrillation
Tikosyn loaded 01/11/23
s/p CV 12/21/2022
s/p PVI cryo ablation 03/26/2023
s/p CV 02/22/2025
s/p PVI ablation with additional ablation sets of inferior LA floor and anterior LA roof 03/02/2025
Chronic Eliquis OAC
HTN
Hyperlipidemia
Hypothyroidism with h/o thyroid nodule
Anxiety
Echo 11/17/21: EF 60-65%, normal diastolic function, mild MR, no , moderate aortic regurgitation, mild TR�
TIERNEY 03/02/2025: EF 60 to 65%. No left atrial appendage thrombus. Mild to moderate MR.
Plan:
-elective PVI ablation with additional ablation sets inferior LA roof and anterior LA roof 03/02/2025
-Feeling great following PVI ablation. No events noted overnight.
-Per review of telemetry patient remains in sinus rhythm. EKG 03/03/2025 stable showing normal sinus rhythm
-Bilateral groins clean dry intact without hematoma or significant ecchymosis
-Resumed anticoagulation on evening of 03/02/2025. hgb stable 12.1
-PPI daily for 30 days
-Continue all other cardiac medications without change
-Outpatient cardiac follow-up arranged
Progress Note - Nursery Worker
Subjective
Date of Service: March 03, 2025
Patient seen and examined. Patient reports she is feeling well. No issues overnight and remains in sinus rhythm. Would like to go home.
Objective
Labs:
03/03/25 02:14
03/03/25 02:14
Labs
Hgb 12.1 g/dL (12.0-16.0) 03/03/25 02:14
Hct 35.0 % (37.0-47.0) L 03/03/25 02:14
Plt Count 194 10^3/uL (130-400) 03/03/25 02:14
Sodium 134 mmol/L (135-145) L 03/03/25 02:14
Potassium 4.1 mmol/L (3.5-5.1) 03/03/25 02:14
BUN 16 mg/dl (7-17) 03/03/25 02:14
Creatinine 0.7 mg/dL (0.6-1.0) 03/03/25 02:14
Glucose 101 mg/dl (70-99) H 03/03/25 02:14
Vital Signs and I&O:
Vital Signs
Temp Pulse Resp BP Pulse Ox
98.9 F 74 18 129/62 98
03/03/25 08:11 03/03/25 08:11 03/03/25 08:11 03/03/25 02:07 03/03/25 08:11
Vital Signs
Temp Pulse Resp BP Pulse Ox
98.9 F 74 18 129/62 98
03/03/25 08:11 03/03/25 08:11 03/03/25 08:11 03/03/25 02:07 03/03/25 08:11
Intake & Output
03/01/25 03/02/25 03/03/25 03/04/25
06:59 06:59 06:59 06:59
Intake Total 1899
Balance 1899
Physical Exam
Physical Exam
GEN: No distress, awake, Ox3
HEENT: supple, anicteric, mmm
LUNGS: CTA, no wheezes/rales
CV: Reg, S1/S2, 2/6 systolic murmur, rubs or gallops
ABD: soft, BS+, NT/ND
EXT: No edema, clubbing or cyanosis; right groin dressing C/D/I, no hematoma, ecchymosis or bruit appreciated
NEURO: Gross non-focal
SKIN: No rash, warm, dry, pink
[2025-03-03] MEDS: CATAPRES 0.1 MG PO (10:31)
== END 2025-03-03 11:50 | disposition home or self-care (01) ==
LOC: CATH 06:41
PROVIDERS: Nurse Practitioner; ATTENDING PHYSICIAN Internal Medicine Cardiovascular Disease; FAMILY PHYSICIAN Family Medicine; OTHER PHYSICIAN Internal Medicine Cardiovascular Disease
DX: I48.0 Paroxysmal atrial fibrillation (principal); I48.3 Typical atrial flutter; I51.3 Intracardiac thrombosis, not elsewhere classified; I10 Essential (primary) hypertension; I65.23 Occlusion and stenosis of bilateral carotid arteries; E03.9 Hypothyroidism, unspecified; E78.2 Mixed hyperlipidemia; F41.9 Anxiety disorder, unspecified; I08.3 Combined rheumatic disorders of mitral, aortic and tricuspid valves; I70.0 Atherosclerosis of aorta; Z79.01 Long term (current) use of anticoagulants; Z91.040 Latex allergy status; Z91.048 Other nonmedicinal substance allergy status; Z91.148 Patient's other noncompliance with medication regimen for other reason; Z88.8 Allergy status to other drugs, medicaments and biological substances
CPT/HCPCS: 93312; 93320; 93325; C1733; C1894; C1730; C1759; C1766; 80048; 83735; 85027; 85347; 93005; 93655; 93656; 93657

== ENCOUNTER 2025-03-20 16:49 | Emergency (ER) | payer MEDICARE, BC, SELFPAY ==
[2025-03-20 16:51] VITALS: BP 190/90
--- NOTE | 2025-03-20 17:24 | ED.GENMED ---
History of Present Illness
General
Chief Complaint: Blood Pressure Problem
Time Seen by Provider: 03/20/25 17:05
History of Present Illness
History of Present Illness:
82-year-old female presents the emergency department for evaluation of hypotension. She is a longstanding history of hypertension, initially treatment resistant and ultimately underwent excision of a paraganglioma, blood pressure was 110 however
she notes that ablation procedure several weeks ago at this hospital her blood pressure seem to be labile and uncontrolled. She has a longstanding history of labile hypertension. She is maintained on multiple antihypertensives and is compliant.
Spoke with her road roller operator this morning who advised her to increase her lisinopril from 20 mg daily to 20 mg twice daily. She was at her eye doctor today who advised her to come to the emergency department. She did check in the ER earlier today
and had labs that were unremarkable however left without treatment. Currently she denies any symptoms and feeling jittery, she denies chest pain, headache, shortness of breath
Past History
Past History
ED Past Medical History: Arrthythmia (Palpitations, questionable history of atrial fibrillation), HTN, Valvular disease, Hypothyroidism, Psychiatric (Anxiety) and Other (migraines)
ED Past Surgical History: Cardiac and Gynecological
Social History
Tobacco: Non-smoker
Alcohol: Occasional
Drug: None
Personal:
Living: with family
Family History
Family History: Unable to obtain
Review of Systems
Review of Systems
Allergies reviewed?: Yes
All Other Systems: ROS reviewed and negative except as documented in HPI and ROS
Phy Exam
Physical Exam
Physical Exam:
GEN: Well appearing, NAD, WDWN
HEENT: Oral mucosa moist, no scleral icterus
Cardiac: Regular rate and rhythm, no murmur
Lung: No respiratory distress, no tachypnea, lungs clear to auscultation
MSK: No gross deformity or injuries
Skin: Good color, no pallor or jaundice, no rashes
Neuro: AO x3, moves all extremities freely
Psych: Calm, cooperative
Course
Orders/Labs/Results
Orders:
Orders
03/20/25 17:02
EKG [Electrocardiogram (*1)] Urgent
Reason for Study: Hypertension, Benign
03/20/25 17:03
EKG- Treatment ONCE
Vital Signs
Initial and Last Documented VS:
Initial Vital Signs
Temp Pulse Resp BP Pulse Ox
98.9 F 78 20 190/90 97
03/20/25 16:51 03/20/25 16:51 03/20/25 16:51 03/20/25 16:51 03/20/25 16:51
Last Documented Vital Signs
Temp Pulse Resp BP Pulse Ox
98.9 F 78 20 190/90 97
03/20/25 16:51 03/20/25 16:51 03/20/25 16:51 03/20/25 16:51 03/20/25 17:27
MDM/Problems Addressed
MDM/Problems Addressed:
Patient had labs earlier today that were unremarkable. She has no symptoms of endorgan damage. She is markedly hypertensive here however on review of her home documented blood pressures this appears to be the case for quite some time. Agree with
increasing her lisinopril, I also recommended that she undergo outpatient renal artery ultrasound for further confirmation that this is not secondary hypertension although less likely. Orders are written for her to obtain this outpatient study.
She will follow-up with her road roller operator in 8 days
Comment
Comment:
EKG dependently turbid by me shows normal sinus rhythm with slight hyperacute T waves anteriorly however QRS to T ratio comparable to previous tracings
*Pulse Oximetry
SaO2: 97
Oxygen Mode of Delivery: Room air
Patient hypoxic: no
*Critical Care Note
Total Time (30-74mins, 75-104mins- exclusive of procedures): Not Applicable
ED Attending Note
-
Portions of this chart may have been created with voice recognition software.� Occasional wrong word or��sound alike� substitutions may have occurred due to the inherent limitations of voice recognition software.
Discharge Plan
Departure
Patient Disposition: Home (Routine Discharge)
Date of Disposition: 03/20/25
Time of Disposition: 17:25
Patient with high blood pressure during this ER visit?: No
Discharge Problem:
Resistant hypertension
Instructions: High Blood Pressure (DC)
Prescriptions:
No Action
levothyroxine 25 MCG tablet
25 mcg PO DAILY AT 0700
ezetimibe [Zetia] 10 MG tablet
10 mg PO HS
cholecalciferol (vitamin D3) [Vitamin D3] 2,000 UNIT capsule
2,000 unit PO DAILY
multivitamin Tablet
1 tab PO DAILY
lisinopril 20 mg Tablet
20 mg PO HS
Eliquis 5 MG tablet
5 mg PO BID Qty: 0 0RF
carvedilol [Coreg] 25 mg tablet
25 mg PO BID Qty: 60 1RF
pantoprazole 20 mg Tablet,Delayed Release (Dr/Ec)
20 mg PO DAILY
torsemide 5 mg Tablet
5 mg PO Q48H
clonidine HCl 0.1 mg Tablet
0.1 mg PO BID
diphenhydramine-acetaminophen [Tylenol PM Extra Strength] 25-500 mg Tablet
1 tab PO HS PRN (Reason: sleep)
clonidine 0.3 mg/24 hr Patch Weekly
1 patch TRANSDERMAL QWEEK
docusate sodium [Colace] 100 mg Capsule
200 mg PO HS
Metamucil
1.5 tbsp PO HS
Activity Restrictions/Additional Instructions:
Continue with plans to increase lisinopril to 20mg twice daily
Call radiology scheduling at [phone] to schedule your renal artery doppler ultrasound
Have your kidney function test (basic metabolic panel) rechecked in 5-7 days
Follow up with cardiology as planned on 03/28
Return to the ER if you develop chest pain, headaches, speech problems, or severe dizziness
Please refrain from checking your blood pressure more than 1-2 times per day
Interventions
Interventions:
*Risk Screen - Suicide Last Done: 03/20/25 16:51
*General Assessment Last Done: 03/20/25 16:51
*Neglect/Abuse Screening Last Done: 03/20/25 16:51
*ED COVID-19 Vaccine History Last Done: 03/20/25 16:51
*ED Influenza Vaccine History Last Done: 03/20/25 16:51
[facility] Fall Risk Assessment Tool Last Done: 03/20/25 17:43
*Nursing Disposition Last Done: 03/20/25 17:43
ED- Cardiac Assessment Last Done: 03/20/25 17:41
ED- Neurological Assessment Last Done: 03/20/25 17:41
ED- Pulmonary Assessment Last Done: 03/20/25 17:41
Discharge Date and Time
Discharge Date/Time: 03/20/25 17:47
Print Language: MACANESE
== END 2025-03-20 17:47 | disposition home or self-care (01) ==
LOC: EMR 16:49
PROVIDERS: EMERGENCY PHYSICIAN Emergency Medicine; FAMILY PHYSICIAN Family Medicine
DX: I1A.0 Resistant hypertension (principal); E03.9 Hypothyroidism, unspecified
CPT/HCPCS: 99284; 80053; 85025; 93005

== ENCOUNTER → 2025-03-27 09:08 | Outpatient (REF) | payer MEDICARE, BC, SELFPAY ==
[2025-03-27 10:29] LABS: Blood Urea Nitrogen 15 mg/dl (7-17); Calcium 9.3 mg/dl (8.4-10.2); Carbon Dioxide 30 mmol/L (22-30); Chloride 98 mmol/L (98-107); Glucose 81 mg/dl (70-99); Potassium 4.7 mmol/L (3.5-5.1); Sodium 132 mmol/L (135-145); eGFR > 60.00
== END ==
LOC: REG 09:08
PROVIDERS: ATTENDING PHYSICIAN Internal Medicine Cardiovascular Disease; FAMILY PHYSICIAN Family Medicine
DX: R09.89 Other specified symptoms and signs involving the circulatory and respiratory systems (principal)
CPT/HCPCS: 36415; 80048

== ENCOUNTER 2025-04-02 13:59 | Emergency (ER) | payer MEDICARE, BC, SELFPAY ==
[2025-04-02 14:09] VITALS: BP 220/105
[2025-04-02 14:37] LABS: Hematocrit 39.4 % (37.0-47.0); Hemoglobin 13.8 g/dL (12.0-16.0); Mean Corp Hgb Conc. 35.0 g/dL (33.0-37.0); Mean Corpuscular Volume 97.0 fL (81.0-99.0); Nucleated Red Blood Cells % 0 %; Platelet Count 159 10^3/uL (130-400); Red Cell Dist. Width 12.5 % (11.5-14.5)
[2025-04-02 14:53] LABS: Troponin I < 0.012 ng/ml
[2025-04-02 15:02] LABS: ALT (SGPT) 17 U/L (0-35); AST (SGOT) 27 U/L (14-36); Albumin 4.5 g/dl (3.5-5.0); Alkaline Phosphatase 99 U/L (38-126); Blood Urea Nitrogen 14 mg/dl (7-17); Calcium 9.6 mg/dl (8.4-10.2); Carbon Dioxide 27 mmol/L (22-30); Chloride 97 mmol/L (98-107); Glucose 120 mg/dl (70-99); Potassium 5.0 mmol/L (3.5-5.1); Sodium 130 mmol/L (135-145); Total Protein 7.6 g/dl (6.3-8.2); eGFR > 60.00
[2025-04-02 16:45] VITALS: BP 156/108
[2025-04-02 17:40] VITALS: BMI 23.6
[2025-04-02 17:45] VITALS: BP 220/101
[2025-04-02 18:00] VITALS: BP 226/97
--- NOTE | 2025-04-02 18:00 | ED.GENMED ---
History of Present Illness
<Stevie Alvares MD, Resident - Last Filed: 04/02/25 20:23>
General
Chief Complaint: Blood Pressure Problem
Time Seen by Provider: 04/02/25 17:27
History of Present Illness
History of Present Illness:
89 yo F PMH HTN, atrial fibrillation, valvular disease p/w elevated BP to 230s systolic. Family reports that they came to ED initially, then were seen by Dr. Russ today, and then were told to represent to the ED with the following instructions
from Dr. Russ
'In ER, please give clonidine 0.1mg now then increase clonidine 0.1mg 2x/day plus patch. Increase lisinopril 20mg 2x/day. Stop diltiazem.'
'Please draw metanephrines, catecholamines, zoe/renin ratio, and serotonin level'
patient reports a headache, blurry vision, and a sensation of pressure rising in her chest but slightly improved now.
Repeat VS: 220/101 BP.
Clonidine 0.1mg PO was given and labs were drawn.
She denies nausea/vomiting. She denies focal weakness, chest pain, abdominal pain, dyspnea.
additional pMH from [facility], Dr. 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 Instructions: 'Magy was redirected to the ER. Her IV remains in place. I would like
her to receive an oral clonidine now. Diltiazem will be discontinued. Lisinopril will be increased to 20 mg twice daily. It was explained that she can not be discharged from the ER until her blood pressure is under better control.'
Past History
<Stevie Alvares MD, Resident - Last Filed: 04/02/25 20:23>
Past History
ED Past Medical History: Arrthythmia (Palpitations, questionable history of atrial fibrillation), HTN, Valvular disease, Hypothyroidism, Psychiatric (Anxiety) and Other (migraines)
ED Past Surgical History: Cardiac and Gynecological
Social History
Tobacco: Non-smoker
Alcohol: Occasional
Drug: None
Personal:
Living: with family
Family History
Family History: Unable to obtain
Review of Systems
<Stevie Alvares MD, Resident - Last Filed: 04/02/25 20:23>
Review of Systems
Constitutional: Reports no symptoms
EENT: Reports no symptoms
Respiratory: Reports no symptoms
Cardiac: Reports no symptoms
ABD/GI: Reports no symptoms
: Reports no symptoms
Musculoskeletal: Reports no symptoms
Neurological: Reports headache
Phy Exam
<Stevie Alvares MD, Resident - Last Filed: 04/02/25 20:23>
Physical Exam
Physical Exam:
VS: 220/101, HR 71, T 97.7, O2sat 96%
General: in some distress
CV: no murmurs
Pulm: CTAB
Neuro: AOx3, no asterixis or pronator drift, motor function grossly intact
Abd: + bowel sounds, no tenderness to palpation
Course
<Stevie Alvares MD, Resident - Last Filed: 04/02/25 20:23>
Orders/Labs/Results
Orders:
Orders
04/02/25 13:59
EKG [Electrocardiogram (*1)] Urgent
Reason for Study: Chest Pain
04/02/25 14:00
EKG- Treatment ONCE
04/02/25 14:15
Complete Blood Count/With Diff Urgent
Comprehensive Metabolic Panel Urgent
Troponin I Urgent
04/02/25 18:04
Clonidine [Catapres] 0.1 mg PO NOW STA
04/02/25 18:25
Aldosterone/Renin Act Ratio [S] Urgent
Catecholamine Fraction Plasma [S] Urgent
Metanephrines, Plasma (free) [S] Urgent
Serotonin [S] Urgent
04/02/25 19:19
Acetaminophen [Tylenol] 650 mg PO NOW ONE
Abnormal Lab Results
04/02/25
14:15
RBC 4.06 L 10^6/uL
(4.20-5.40)
MCH 34.0 H pg
(27.0-31.0)
MPV 11.4 H fL
(7.4-10.4)
Sodium 130 L mmol/L
(135-145)
Chloride 97 L mmol/L
(98-107)
Glucose 120 H mg/dl
(70-99)
04/02/25 14:15
04/02/25 14:15
Vital Signs
Initial and Last Documented VS:
Initial Vital Signs
Temp Pulse Resp BP Pulse Ox
97.7 F 76 16 220/105 98
04/02/25 14:09 04/02/25 14:09 04/02/25 14:09 04/02/25 14:09 04/02/25 14:09
Last Documented Vital Signs
Temp Pulse Resp BP Pulse Ox
97.7 F 71 13 220/101 96
04/02/25 14:09 04/02/25 17:40 04/02/25 17:40 04/02/25 17:45 04/02/25 18:01
Sapphirelt;Jai Renteria, DO - Last Filed: 04/02/25 19:30>
Orders/Labs/Results
Orders:
Orders
04/02/25 13:59
EKG [Electrocardiogram (*1)] Urgent
Reason for Study: Chest Pain
04/02/25 14:00
EKG- Treatment ONCE
04/02/25 14:15
Complete Blood Count/With Diff Urgent
Comprehensive Metabolic Panel Urgent
Troponin I Urgent
04/02/25 18:04
Clonidine [Catapres] 0.1 mg PO NOW STA
04/02/25 18:25
Aldosterone/Renin Act Ratio [S] Urgent
Catecholamine Fraction Plasma [S] Urgent
Metanephrines, Plasma (free) [S] Urgent
Serotonin [S] Urgent
04/02/25 19:19
Acetaminophen [Tylenol] 650 mg PO NOW ONE
Abnormal Lab Results
04/02/25
14:15
RBC 4.06 L 10^6/uL
(4.20-5.40)
MCH 34.0 H pg
(27.0-31.0)
MPV 11.4 H fL
(7.4-10.4)
Sodium 130 L mmol/L
(135-145)
Chloride 97 L mmol/L
(98-107)
Glucose 120 H mg/dl
(70-99)
04/02/25 14:15
04/02/25 14:15
Vital Signs
Initial and Last Documented VS:
Initial Vital Signs
Temp Pulse Resp BP Pulse Ox
97.7 F 76 16 220/105 98
04/02/25 14:09 04/02/25 14:09 04/02/25 14:09 04/02/25 14:09 04/02/25 14:09
Last Documented Vital Signs
Temp Pulse Resp BP Pulse Ox
97.7 F 71 13 220/101 96
04/02/25 14:09 04/02/25 17:40 04/02/25 17:40 04/02/25 17:45 04/02/25 18:01
<Stevie Alvares MD, Resident - Last Filed: 04/02/25 20:23>
MDM/Problems Addressed
Differential Diagnosis Includes:
HTN, HTN urgency, HTN emergency, secondary hypertension, CVA, intracranial hemorrhage
MDM/Problems Addressed:
89 yo F p/w hypertension + headache, some reported blurry vision but improving. no nausea vomiting reassures against increased ICP for now but will monitor and do CTH noncontrast if needed
troponin negative
EKG NSR
cr 0.7 normal
most likely HTN vs HTN urgency, no current signs of end organ dysfunction
no encephalopathy, no asterixis or pronator drift
instructions from Dr. Russ:
'In ER, please give clonidine 0.1mg now then increase clonidine 0.1mg 2x/day plus patch. Increase lisinopril 20mg 2x/day. Stop diltiazem.'
'Please draw metanephrines, catecholamines, zoe/renin ratio, and serotonin level'
additional pMH from [facility], Dr. 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 Instructions: 'Magy was redirected to the ER. Her IV remains in place. I would like
her to receive an oral clonidine now. Diltiazem will be discontinued. Lisinopril will be increased to 20 mg twice daily. It was explained that she can not be discharged from the ER until her blood pressure is under better control.'
Plan:
clonidine 0.1mg PO
monitor VS
Update:
Repeat VS: BP systolic 197
tylenol offered but patient declined
will monitor BP and symptoms
Update @ 20:00
Repeat blood pressure of 175/83.
Patient reports significantly feeling better with improved headache, no changes in vision, continues to deny chest pain.
Patient is medically stable for discharge, and patient is okay with going home.
Will instruct patient to follow Dr. Russ's medication changes (appointment already scheduled for 04/10).
<Stevie Alvares MD, Resident - Last Filed: 04/02/25 20:23>
*Pulse Oximetry
SaO2: 96
Oxygen Mode of Delivery: Room air
Patient hypoxic: no
*Critical Care Note
Total Time (30-74mins, 75-104mins- exclusive of procedures): Not Applicable
ED Attending Note
<Stevie Alvares MD, Resident - Last Filed: 04/02/25 20:23>
-
Portions of this chart may have been created with voice recognition software.� Occasional wrong word or��sound alike� substitutions may have occurred due to the inherent limitations of voice recognition software.
<Jai Renteria DO - Last Filed: 04/02/25 19:30>
ED Attending Note
Patient seen and examined by attending physician: Yes
I performed a history and physical exam of patient and discussed management with resident, I reviewed resident's note and agree with documented findings and plan of care.: Yes
ED Attending Note:
Seen with resident examined independently 89-year-old female referred by nephrology for facilitated workup for accelerated hypertension, plan to start meds titrate them and obtain labs for secondary causes, patient appears well states she has a
headache systolic blood pressure is elevated will follow her response to treatment
Discharge Plan
Departure
Patient Disposition: Home (Routine Discharge)
Date of Disposition: 04/02/25
Time of Disposition: 20:20
Patient with high blood pressure during this ER visit?: Yes
Condition: Fair
Discharge Problem:
BP (high blood pressure)
Instructions: High Blood Pressure (DC)
Prescriptions:
New
clonidine HCl 0.1 mg tablet
0.1 mg PO BID Qty: 20 0RF
lisinopril 20 mg tablet
20 mg PO BID Qty: 20 0RF
No Action
levothyroxine 25 MCG tablet
25 mcg PO DAILY AT 0700
ezetimibe [Zetia] 10 MG tablet
10 mg PO HS
cholecalciferol (vitamin D3) [Vitamin D3] 2,000 UNIT capsule
2,000 unit PO DAILY
multivitamin Tablet
1 tab PO DAILY
lisinopril 20 mg Tablet
20 mg PO HS
Eliquis 5 MG tablet
5 mg PO BID Qty: 0 0RF
carvedilol [Coreg] 25 mg tablet
25 mg PO BID Qty: 60 1RF
pantoprazole 20 mg Tablet,Delayed Release (Dr/Ec)
20 mg PO DAILY
torsemide 5 mg Tablet
5 mg PO Q48H
clonidine HCl 0.1 mg Tablet
0.1 mg PO BID
diphenhydramine-acetaminophen [Tylenol PM Extra Strength] 25-500 mg Tablet
1 tab PO HS PRN (Reason: sleep)
clonidine 0.3 mg/24 hr Patch Weekly
1 patch TRANSDERMAL QWEEK
docusate sodium [Colace] 100 mg Capsule
200 mg PO HS
Metamucil
1.5 tbsp PO HS
Referrals:
Mark Coronel DO [Family Provider, Family Practice]
Activity Restrictions/Additional Instructions:
As per Dr. Russ's instruction take clonidine 0.1mg twice a day + patch. And, take lisinopril 20mg twice a day. A 10-day supply has been sent to your pharmacy, your next follow-up is 04/[address] Russ.
Please return to the ER or seek care if you experience significant elevations in blood pressure, headache, changes in vision, or focal weakness/numbness of tingling.
Interventions
Interventions:
*General Assessment Last Done: 04/02/25 14:09
*Neglect/Abuse Screening Last Done: 04/02/25 14:09
*ED COVID-19 Vaccine History Last Done: 04/02/25 14:09
*ED Influenza Vaccine History Last Done: 04/02/25 14:09
[facility] Risk Assessment Tool Last Done: 04/02/25 17:58
ED- Cardiac Assessment Last Done: 04/02/25 17:57
ED- Neurological Assessment Last Done: 04/02/25 17:57
ED- Pulmonary Assessment Last Done: 04/02/25 17:57
Discharge Date and Time
Print Language: FINNISH
[2025-04-02] MEDS: CATAPRES 0.1 MG PO (18:10)
[2025-04-02 19:00] VITALS: BP 197/78
[2025-04-02 20:00] VITALS: BP 175/83
[2025-04-05 22:56] LABS: Aldosterone/Renin Activ Ratio 3.1 ratio (<=25.0); Renin Activity Results 3.7 ng/mL/hr
== END 2025-04-02 20:59 | disposition home or self-care (01) ==
LOC: EMR 13:59
PROVIDERS: Emergency Medicine; EMERGENCY PHYSICIAN Emergency Medicine; FAMILY PHYSICIAN Family Medicine
DX: I10 Essential (primary) hypertension (principal); E03.9 Hypothyroidism, unspecified; I48.91 Unspecified atrial fibrillation; Z79.899 Other long term (current) drug therapy
CPT/HCPCS: 99284; 80053; 82088; 82384; 83835; 84244; 84260; 84484; 85025; 93005